=== PATIENT | male | born 1980 | race Caucasian/White ===

== ENCOUNTER 2017-08-02 16:10 | Emergency (ER) | payer SELFPAY ==
[~2017-08-02] VITALS: Ht 175.3 cm; Wt 104.5 kg
[~2017-08-02 16:10] MED LIST: Z.0.NO CURRENT MEDS
[2017-08-02 16:14] VITALS: BP 159/94; PULSE 109; RESP 16; TEMP 98.1; O2SAT 98
--- NOTE | 2017-08-02 17:34 | RADRPT ---
EXAM DATE/TIME: 08/02/2017 17:03 [facility] COMPARISON: No previous studies available for comparison. INDICATIONS : Back pain, no recent injury. RADIATION DOSE: 40.08 CTDIvol (mGy) MEDICAL HISTORY : None SURGICAL HISTORY : None. ENCOUNTER: Initial ACUITY: 1 day PAIN SCALE: 10/10 LOCATION: [facility] TECHNIQUE: Volumetric scanning of the lumbar spine was performed. Multiplanar reconstructions in the sagittal, coronal and oblique axial planes were performed. Using automated exposure control and adjustment of the mA and/or kV according to patient size, radiation dose was kept as low as reasonably achievable t o obtain optimal diagnostic quality images. DICOM format image data is available electronically for review and comparison. FINDINGS: VERTEBRAE: Normal vertebral body height. ALIGNMENT: No evidence of subluxation. T12-L1: The thecal sac has a normal diameter. No evidence of disc bulge or protrusion. The neural foramina are patent bilaterally. L1-L2: The thecal sac has a normal diameter. No evidence of disc bulge or protrusion. The neural foramina are patent bilaterally. L2-L3: The thecal sac has a normal diameter. No evidence of disc bulge or protrusion. The neural foramina are patent bilaterally. L3-L4: The thecal sac has a normal diameter. No evidence of disc bulge or protrusion. The neural foramina are patent bilaterally. L4-L5: Mild disc bulging without significant spinal stenosis. Mild degenerative changes are present facets. L5-S1: Central disc protrusion impinging the intrathecal space. Neural foramina are adequate. CONCLUSION: Moderate central disc protrusion L5-S1. Andre Norman MD FACR on August 02, 2017 at 17:31 Board Certified Radiologist. This report was verified electronically.
[2017-08-02] MEDS ORDERED: ORPHENADRINE INJ 60 MG/2 ML AMP IM ONE (17:45)
[2017-08-02] MEDS ORDERED: KETOROLAC TROMETHAMINE 60 MG/2 ML (IM) VIAL IM ONE (17:45)
[2017-08-02] MEDS ORDERED: PRED10PA2 PO (18:19)
[2017-08-02] MEDS ORDERED: CYCL10TA PO (18:19)
[2017-08-02] MEDS ORDERED: NAPR500T2 PO (18:19)
[2017-08-02] MEDS ORDERED: GABA300C5 PO (18:19)
--- NOTE | 2017-08-02 18:21 | PD ---
HPI . Back pain Chief Complaint: Musculoskeletal Complaint Time Seen by Provider: 16:33 Travel History International Travel<30 days: No Contact w/Intl Traveler<30days: No Traveled to known affect area: No History of Present Illness HPI 37-year-old male patient presents emergency department for evaluation of back pain since last Monday. Patient clearly in distress and uncomfortable, unable to move freely secondary to the pain. Patient states the pain is so severe it is in impeding his ability to maintain a normal life. Patient states the pain radiates down both of his legs. Patient denies any fevers, chills or malaise. Patient denies any incontinence of urine or stool. Patient denies any IV drug use. Patient states that the pain started when he was lifting an object from the ground on Monday. Patient has history of back pain in the past but states it is never been this severe. PFSH Past Medical History Asthma: Yes High Cholesterol: Yes Hypertension: Yes (NO MEDS) Kidney Stones: Yes Immunizations Current: Yes Migraines: Yes (?? FROM SLIP DISC IN BACK) Social History Alcohol Use: Yes (OCC) Tobacco Use: Yes (2PPD) Allergies-Medications (Allergen,Severity, Reaction): Coded Allergies: No Known Allergies (Verified Allergy, Mild, 08/02/17) Reported Meds & Prescriptions Reported Meds & Active Scripts Active Flexeril (Cyclobenzaprine HCl) 10 Mg Tab 10 Mg PO TID Naproxen 500 Mg Tab 500 Mg PO BID 10 Days Gabapentin 300 Mg Cap 300 Mg PO TID Prednisone (48) 10 mg tab Dose Pack (Prednisone) 10 Mg Dspk 10 Mg PO DIRECTED Review of Systems Except as stated in HPI: all other systems reviewed are Neg Physical Exam Narrative GENERAL: Well-nourished, well-developed 37-year-old male patient that appears anxious and painful. Unable to move freely secondary to the pain. SKIN: Focused skin assessment warm/dry. HEAD: Normocephalic. Atraumatic. EYES: No scleral icterus. No injection or drainage. NECK: Supple, trachea midline. No JVD or lymphadenopathy. CARDIOVASCULAR: Regular rate and rhythm without murmurs, gallops, or rubs. RESPIRATORY: Breath sounds equal bilaterally. No accessory muscle use. GASTROINTESTINAL: Abdomen soft, non-tender, nondistended. MUSCULOSKELETAL: No obvious deformity, cyanosis, or edema. BACK: Midline tenderness to the lumbosacral region causing pain that radiates down bilateral lower extremities. No CVA tenderness. Data Data Last Documented VS Vital Signs Date Time Temp Pulse Resp B/P (MAP) Pulse Ox O2 Delivery O2 Flow Rate FiO2 08/02/17 16:14 98.1 109 16 159/94 (115) [address] Lumb Spine W/O Contrast (08/02/17 16:53) Ketorolac Inj (Toradol Inj) (08/02/17 17:45) Orphenadrine Inj (Norflex Inj) (08/02/17 17:45) [facility] Medical Decision Making Medical Screen Exam Complete: Yes Emergency Medical Condition: Yes Interpretation(s) Afebrile Differential Diagnosis Differential diagnoses include but not limited to back sprain, muscular strain, herniated disc, lumbar sacral injury, cauda equina syndrome Narrative Course 37-year-old male patient presents emergency department for evaluation of back pain that started last Monday when he was lifting an object off the ground. Patient states the pain has been constant. Patient denies any fever, chills, malaise. Patient denies any incontinence of urine or stool. Patient denies any IV drug use. Due to the patient's physical presentation and clinical appearance and extreme midline tenderness of the lumbar sacral aspect of the spine causing radiculopathy pain a CT of the lumbar spine was ordered. The CT shows moderate central disc protrusion of L5-S1. Upon these results a rectal exam was performed to check rectal tone. Patient has normal rectal tone. Findings were discussed with my attending, Dr. Meyer and due to the patient's lack of cauda equina syndrome and times the patient will be discharged home. Patient was discharged home with prescription for prednisone, Flexeril, gabapentin and naproxen and instructions to follow with Dr. Lowe the neurosurgeon or return to the emergency Department with any worsening or progressive symptoms. Last Impressions Lumbar Spine CT 08/02/17 1653 Signed Impressions: Service Date/Time: Monday, August 02, 2017 17:03 - CONCLUSION: Moderate central disc protrusion L5-S1. Andre Norman MD FACR Diagnosis Primary Impression: Lumbar pain with radiation down both legs Referrals: Yaron Lowe MD Primary Care Physician Patient Instructions: General Instructions, Sciatica (ED) Additional Instructions: Please return to emergency department if your symptoms return or worsen. Look for any progressive symptoms such as incontinence of urine or stool, numbness on inner thigh or groin, fever or chills. Return to the emergency department immediately. Follow-up with Dr. Lowe, the neurosurgeon. Follow up with your primary care provider. Take medications as prescribed. Med/Other Pt SpecificInfo: Prescription(s) given Scripts Cyclobenzaprine (Flexeril) 10 Mg Tab 10 MG PO TID for Muscle Spasm, #30 TAB 0 Refills Prov: Jessie Baumann 08/02/17 Naproxen (Naproxen) 500 Mg Tab 500 MG PO BID for 10 Days, #20 TAB 0 Refills Prov: Jessie Baumann 08/02/17 Gabapentin (Gabapentin) 300 Mg Cap 300 MG PO TID, #30 CAP 0 Refills Prov: Jessie Baumann 08/02/17 Prednisone (48) 10 mg tab Dose Pack (Prednisone (48) 10 mg tab Dose Pack) 10 Mg Dspk 10 MG PO DIRECTED for Inflammation, #1 DSPK 0 Refills Prov: Jessie Baumann 08/02/17 Disposition: 01 DISCHARGE HOME Condition: Stable Jessie Baumann Aug 02, 2017 18:21
== END 2017-08-02 18:35 | disposition home or self-care (01) ==
LOC: PHEFT 16:10
DX: M54.41 Lumbago with sciatica, right side (principal); M54.42 Lumbago with sciatica, left side; F17.200 Nicotine dependence, unspecified, uncomplicated
CPT/HCPCS: 72131; 96372; 99284; J1885; J2360

== ENCOUNTER 2018-01-04 17:15 | Inpatient (IN) | payer SELFPAY ==
[~2018-01-04] VITALS: Ht 177.8 cm; Wt 112.6 kg
[~2018-01-04 17:15] MED LIST changes: +CYCL10TA PO; +GABA300C5 PO; +NAPR500T2 PO; +PRED10PA2 PO; -Z.0.NO CURRENT MEDS
[2018-01-04] MEDS ORDERED: IOHEXOL 350 MG/ML 10 ML VIAL (for RAD DIAG) IVCONTRAST ONE (17:16)
[2018-01-04 17:42] VITALS: BP 164/69; PULSE 115; RESP 20; TEMP 99.1; O2SAT 96
[2018-01-04] MEDS ORDERED: SODIUM CHLORIDE 0.9% FLUSH 10 ML FLUSH IVF PRN (18:15)
[2018-01-04] MEDS ORDERED: MORPHINE SULFATE 8 MG/ML INJ IV PUSH ONE ×2 (18:15→20:15)
[2018-01-04] MEDS ORDERED: ONDANSETRON HCL 4 MG/2 ML VIAL IV PUSH ONE (18:15)
[2018-01-04] MEDS ORDERED: KETOROLAC TROMETHAMINE 30 MG/ML (IVP) VIAL IV PUSH ONE (18:15)
[2018-01-04 19:10] VITALS: BP 176/92; PULSE 95; RESP 18; O2SAT 100
[2018-01-04 19:38] LABS: AUTOMATED NEUTROPHIL # 17.3 TH/MM3 (1.8-7.7); BASOPHIL # 0.1 TH/MM3 (0-0.2); BASOPHIL % 0.4 % (0.0-2.0); EOSINOPHIL % 0.1 % (0.0-4.0); HEMATOCRIT 43.9 % (39.0-51.0); HEMOGLOBIN 15.2 GM/DL (13.0-17.0); LYMPHOCYTE # 2.2 TH/MM3 (1.0-4.8); MEAN CELL VOLUME 90.4 FL (80.0-100.0); MEAN CORPUSCULAR HEMOGLOBIN 31.4 PG (27.0-34.0); MEAN CORPUSCULAR HGB CONC 34.7 % (32.0-36.0); MEAN PLATELET VOLUME 7.1 FL (7.0-11.0); MONO % 8.8 % (0.0-8.0); MONOCYTE # 1.9 TH/MM3 (0-0.9); NEUT % 80.7 % (16.0-70.0); PLATELET COUNT 320 TH/MM3 (150-450); RED BLOOD COUNT 4.85 MIL/MM3 (4.50-5.90); RED CELL DISTRIBUTION WIDTH 13.5 % (11.6-17.2); WHITE BLOOD COUNT 21.4 TH/MM3 (4.0-11.0)
--- NOTE | 2018-01-04 19:55 | PD ---
HPI Chief Complaint: Complaint Time Seen by Provider: 18:04 Travel History International Travel<30 days: No Contact w/Intl Traveler<30days: No Traveled to known affect area: No History of Present Illness HPI 27-year-old male complains of testicular pain for about 30 hours. Pain has been gradual before then however became severe suddenly at 2 PM yesterday. He describes left testicle feels firm. There is constant severe pain. It radiates to the left lower quadrant. Pain made work more difficult. No dysuria or discharge. No fever or vomiting. No similar prior events. No trauma. PFSH Past Medical History Asthma: Yes High Cholesterol: Yes Diminished Hearing: No Hypertension: Yes Kidney Stones: Yes Neurologic: Yes (slipped discs) Immunizations Current: Yes Migraines: Yes (FROM SLIP DISC IN BACK) Tetanus Vaccination: Unknown Influenza Vaccination: No Social History Alcohol Use: Yes (OCC) Tobacco Use: Yes (2PPD) Substance Use: No Allergies-Medications (Allergen,Severity, Reaction): Coded Allergies: No Known Allergies (Verified Allergy, Mild, 08/02/17) Reported Meds & Prescriptions Reported Meds & Active Scripts Active Flexeril (Cyclobenzaprine HCl) 10 Mg Tab 10 Mg PO TID Naproxen 500 Mg Tab 500 Mg PO BID 10 Days Review of Systems Except as stated in HPI: all other systems reviewed are Neg General / Constitutional: No: Fever Eyes: No: Drainage Cardiovascular: No: Chest Pain or Discomfort Physical Exam Narrative GENERAL: 27 yo M, WNWD, mild distress 2/2 pain : No discharge at meatus. No lesion about glans. L testicle is firm with normal lie. Minimal swelling with induration and tenderness. R testicle is normal. Vital Signs Date Time Temp Pulse Resp B/P (MAP) Pulse Ox O2 Delivery O2 Flow Rate FiO2 01/04/18 17:46 99.9 85 14 126/63 (84) 99 SKIN: Warm and dry. HEAD: Atraumatic. Normocephalic. EYES: Pupils equal and round. No scleral icterus. No injection or drainage. ENT: No nasal bleeding or discharge. Mucous membranes pink and moist. NECK: Trachea midline. No JVD. CARDIOVASCULAR: Regular rate and rhythm. RESPIRATORY: No accessory muscle use. Clear to auscultation. Breath sounds equal bilaterally. GASTROINTESTINAL: Soft. No tenderness. MUSCULOSKELETAL: Extremities without clubbing, cyanosis, or edema. No obvious deformities. NEUROLOGICAL: Awake and alert. No obvious cranial nerve deficits. Motor grossly within normal limits. Five out of 5 muscle strength in the arms and legs. Normal speech. PSYCHIATRIC: Appropriate mood and affect; insight and judgment normal. Data Data Last Documented VS Vital Signs Date Time Temp Pulse Resp B/P (MAP) Pulse Ox O2 Delivery O2 Flow Rate FiO2 01/04/18 20:20 85 18 153/76 (101) 96 Room Air 01/04/18 17:42 99.1 Orders Orders Basic Metabolic Panel (Bmp) (01/04/18 18:09) Complete Blood Count With Diff (01/04/18 18:09) Ua Includes Microscopic (01/04/18 18:09) Us Testicles W Doppler (01/04/18 18:09) Iv Access Insert/Monitor (01/04/18 18:09) Sodium Chloride 0.9% Flush (Ns Flush) (01/04/18 18:15) Ketorolac Inj (Toradol Inj) (01/04/18 18:15) Morphine Inj (Morphine Inj) (01/04/18 18:15) Ondansetron Inj (Zofran Inj) (01/04/18 18:15) Ct Abd/Pel W Iv Contrast(Rout) (01/04/18 20:11) Piperacil-Tazo 4.5 Gm Premix (Zosyn 4.5 (01/04/18 20:15) Morphine Inj (Morphine Inj) (01/04/18 20:15) Sodium Chlor 0.9% 1000 Ml Inj (Ns 1000 M (01/04/18 20:15) Iohexol 350 Inj (Omnipaque 350 Inj) (01/04/18 17:16) Admit Order (Ed Use Only) (01/04/18 ) Vital Signs (Adult) Q4H (01/04/18 21:43) Activity Bed Rest (01/04/18 21:43) Labs Laboratory Tests Test 01/04/18 19:15 White Blood Count 21.4 TH/MM3 Red Blood Count 4.85 MIL/MM3 Hemoglobin 15.2 GM/DL Hematocrit 43.9 % Mean Corpuscular Volume 90.4 FL Mean Corpuscular Hemoglobin 31.4 PG Mean Corpuscular Hemoglobin Concent 34.7 % Red Cell Distribution Width 13.5 % Platelet Count 320 TH/MM3 Mean Platelet Volume 7.1 FL Neutrophils (%) (Auto) 80.7 % Lymphocytes (%) (Auto) 10.0 % Monocytes (%) (Auto) 8.8 % Eosinophils (%) (Auto) 0.1 % Basophils (%) (Auto) 0.4 % Neutrophils # (Auto) 17.3 TH/MM3 Lymphocytes # (Auto) 2.2 TH/MM3 Monocytes # (Auto) 1.9 TH/MM3 Eosinophils # (Auto) 0.0 TH/MM3 Basophils # (Auto) 0.1 TH/MM3 CBC Comment DIFF FINAL Differential Comment Blood Urea Nitrogen 14 MG/DL Creatinine 1.22 MG/DL Random Glucose 104 MG/DL Calcium Level 9.0 MG/DL Sodium Level 136 MEQ/L Potassium Level 3.7 MEQ/L Chloride Level 104 MEQ/L Carbon Dioxide Level 24.4 MEQ/L Anion Gap 8 MEQ/L Estimat Glomerular Filtration Rate 68 ML/MIN MDM Medical Decision Making Medical Screen Exam Complete: Yes Emergency Medical Condition: Yes Medical Record Reviewed: Yes Differential Diagnosis cellulitis, torsion, hydrocele Narrative Course Patient has significant cellulitis about the left groin with edema about the inguinal canal. Pt meets sepsis criteria. IV Zosyn started. d/w Dr Solano CBC & BMP Diagram 01/04/18 19:15 Calcium Level 9.0 Last Impressions Abdomen/Pelvis CT 01/04/182010 Signed Impressions: Service Date/Time: December 20:34 - CONCLUSION: Edematous changes around the left inguinal canal Greg Bardales MD Scrotum Ultrasound 01/04/181808 Signed Impressions: Service Date/Time: December 19:12 - CONCLUSION: Testicles are nonacute in appearance. Microlithiasis noted. Edematous changes in the left inguinal canal. Greg Bardales MD Critical Care Narrative Aggregate critical care time was 35 minutes. Time to perform other separately billable procedures was not included in the critical care time. My time did not include minutes spent treating any other patients simultaneously or on activities that did not directly contribute to the patient's treatment. The services I provided to this patient were to treat and/or prevent clinically significant deterioration that could result in: Septic shock I provided critical care services requiring my management, as noted below: Chart data review, documentation time, medication orders and management, vital sign assessments/reviewing monitor data, ordering and reviewing lab tests, ordering and interpreting/reviewing x-rays and diagnostic studies, care of the patient and discussion of the patient with the admitting physicians. Diagnosis Primary Impression: Sepsis Qualified Codes: A41.9 - Sepsis, unspecified organism Additional Impressions: Cellulitis of scrotum Cellulitis of groin, left Admitting Information Admitting Physician Requests: Admit Jose Alejandro Hansen MD Jan 04, 2018 19:55
--- NOTE | 2018-01-04 20:05 | RADRPT ---
EXAM DATE/TIME: 01/04/2018 19:12 [facility] COMPARISON: No previous studies available for comparison. INDICATIONS : Left testicular pain and swelling. MEDICAL HISTORY : Hypertension. Hypercholesterolemia. Asthma. SURGICAL HISTORY : Orthopedic surgery - wrist. ENCOUNTER: Initial ACUITY: 2 days PAIN SCORE: 8/10 LOCATION: Bilateral testicles. MEASUREMENTS: RIGHT TESTICLE: 4.9 x 3.1 x 2.5cm LEFT TESTICLE: 5.3 x 3.3 x 2.3cm FINDINGS: The testicles are intact with normal color flow. No evidence of testicular mass. Bilateral microlithi asis. There is edematous tissue in the left inguinal canal which is nonspecific but may reflect hematoma or cellulitis. CONCLUSION: Testicles are nonacute in appearance. Microlithiasis noted. Edematous changes in the left inguinal canal. Greg Bardales MD on January 04, 2018 at 20:01 Board Certified Radiologist. This report was verified electronically.
[2018-01-04 20:13] LABS: BICARBONATE 24.4 MEQ/L (21.0-32.0); CREATININE 1.22 MG/DL (0.60-1.30)
[2018-01-04] MEDS ORDERED: SODIUM CHLOR 0.9% 1000 ML INJ 1,000 ML IV ONE (20:15)
[2018-01-04] MEDS ORDERED: PIPERACIL-TAZO 4.5 GM PREMIX 100 ML IV ONE (20:15)
[2018-01-04 20:20] VITALS: BP 153/76; PULSE 85; RESP 18; O2SAT 96
--- NOTE | 2018-01-04 21:07 | RADRPT ---
EXAM DATE/TIME: 01/04/2018 20:34 [facility] COMPARISON: US TESTICLE W/DOPPLER, January 04, 2018, 19:12. INDICATIONS : Left lower abdomen pain, testicular pain and swelling. IV CONTRAST: 91 cc Omnipaque 350 (iohexol) IV ORAL CONTRAST: No oral contrast ingested. RADIATION DOSE: 11.02 CTDIvol (mGy) MEDICAL HISTORY : Hypertension. Renal calculi. SURGICAL HISTORY : None. ENCOUNTER: Initial ACUITY: 1 day PAIN SCALE: 7/10 LOCATION: Left lower quadrant abdomen TECHNIQUE: Volumetric scanning of the abdomen and pelvis was performed. Using automated exposure control and ad justment of the mA and/or kV according to patient size, radiation dose was kept as low as reasonably achievable to obtain optimal diagnostic quality images. DICOM format image data is available electro nically for review and comparison. FINDINGS: LOWER LUNGS: The visualized lower lungs are clear. LIVER: Homogeneous density without lesion. There is no dilation of the biliary tree. No calcified gallston es. SPLEEN: Normal size without lesion. PANCREAS: Within normal limits. KIDNEYS: Normal in size and shape. There is no mass, stone or hydronephrosis. ADRENAL GLANDS: Within normal limits. VASCULAR: There is no aortic aneurysm. BOWEL/MESENTERY: The stomach, small bowel, and colon demonstrate no acute abnormality. There is no free intraperitone al air or fluid. ABDOMINAL WALL: Within normal limits. RETROPERITONEUM: There is no lymphadenopathy. BLADDER: No wall thickening or mass. REPRODUCTIVE: Within normal limits. INGUINAL: Edematous changes around the left inguinal canal. No drainable collection. MUSCULOSKELETAL: Within normal limits for patient age. CONCLUSION: Edematous changes around the left inguinal canal Greg Bardales MD on January 04, 2018 at 21:02 Board Certified Radiologist. This report was verified electronically.
[2018-01-04] MEDS ORDERED: ONDANSETRON HCL 4 MG/2 ML VIAL IVP PRN (21:45)
[2018-01-04] MEDS ORDERED: Vancomycin Consult Pharmacy 1 EA OTHER SCH (21:45)
[2018-01-04] MEDS ORDERED: LACTULOSE SYRUP 20 GM/30 ML CUP PO PRN (21:45)
[2018-01-04] MEDS ORDERED: BISACODYL 10 MG SUPP RECTAL PRN (21:45)
[2018-01-04] MEDS ORDERED: ACETAMINOPHEN 325 MG TAB PO PRN (21:45)
[2018-01-04] MEDS ORDERED: ACETAMINOPHEN/HYDROcodone 325 MG/5 MG TAB PO PRN (21:45)
[2018-01-04] MEDS ORDERED: SENNOSIDES 8.6 MG TAB PO PRN (21:45)
[2018-01-04] MEDS ORDERED: MORPHINE SULFATE 2 MG/ML SYRINGE IV PUSH PRN (21:45)
[2018-01-04] MEDS ORDERED: SODIUM CHLORIDE 0.9% FLUSH 10 ML FLUSH IV FLUSH PRN (21:45)
--- NOTE | 2018-01-04 21:47 | HHI.HP ---
[facility] Service [facility] Primary Care Physician No Primary Care Physician Admission Diagnosis Sepsis; Scrotal Cellulitis Diagnoses: (1) Sepsis Diagnosis: Principal (2) Cellulitis of scrotum Diagnosis: Principal (3) HTN (hypertension) Diagnosis: Principal (4) Tobacco abuse Diagnosis: Principal Travel History International Travel<30 Days: No Contact w/Intl Traveler <30 Da: No Traveled to Known Affected Are: No History of Present Illness This is a 37-year-old male with a PMH of HTN, Migraine and Renal Stones who presented to the ER with complaints of testicular pain x1 day. Denies recent trauma or injury. No penile discharge, no dysuria. No h/o similar symptoms in the past. Pain is constant, severe, 10/10, radiates to left groin, worse w/ movement. On arrival, BP 164/69, HR 115, O2 sat 96% on RA, Temp 99.1. WBC 21.4. Chemistry unremarkable. Scrotum US testicles nonacute in appearance, microlithiasis noted, edematous changes left inguinal canal. CT Abdomen/Pelvis edematous changes around left inguinal canal. S/p Zosyn in ER. Review of Systems Except as stated in HPI: all other systems reviewed are Neg ROS: 14 point review of systems otherwise negative. Past Family Social History Past Medical History PMH HTN, Migraine and Renal Stones Past Surgical History PAST SURGICAL HISTORY: Wrist Surgery Allergies: Coded Allergies: No Known Allergies (Verified Allergy, Mild, 08/02/17) Family History PAST FAMILY HISTORY: Reviewed. No h/o DM or CAD Social History PAST SOCIAL HISTORY: Occasional alcohol. Smokes 2ppd. Negative for drugs Physical Exam Vital Signs Vital Signs Date Time Temp Pulse Resp B/P (MAP) Pulse Ox O2 Delivery O2 Flow Rate FiO2 01/04/18 20:20 85 18 153/76 (101) 96 Room Air 01/04/18 20:19 18 01/04/18 19:20 18 01/04/18 19:10 95 18 176/92 (120) 100 Room Air 01/04/18 17:42 99.1 115 20 164/69 (100) 96 Physical Exam PE: GENERAL: Very pleasant young male in no acute distress. Family at bedside. HEENT: PERRLA, EOMI. No scleral icterus or conjunctival pallor. No lid lag or facial droop. CARDIOVASCULAR: Regular rate and rhythm. No obvious murmurs to auscultation. No chest tenderness to palpation. RESPIRATORY: No obvious rhonchi or wheezing. Clear to auscultation. Breath sounds equal bilaterally. GASTROINTESTINAL: Abdomen soft, non-tender, nondistended. BS normal. MUSCULOSKELETAL: Extremities without clubbing, cyanosis, or edema. No obvious deformities. NEUROLOGICAL: Awake, alert and oriented x4. No focal neurologic deficits. Moving both upper and lower extremities spontaneously. Laboratory Laboratory Tests Test 01/04/18 19:15 White Blood Count 21.4 Red Blood Count 4.85 Hemoglobin 15.2 Hematocrit 43.9 Mean Corpuscular Volume 90.4 Mean Corpuscular Hemoglobin 31.4 Mean Corpuscular Hemoglobin Concent 34.7 Red Cell Distribution Width 13.5 Platelet Count 320 Mean Platelet Volume 7.1 Neutrophils (%) (Auto) 80.7 Lymphocytes (%) (Auto) 10.0 Monocytes (%) (Auto) 8.8 Eosinophils (%) (Auto) 0.1 Basophils (%) (Auto) 0.4 Neutrophils # (Auto) 17.3 Lymphocytes # (Auto) 2.2 Monocytes # (Auto) 1.9 Eosinophils # (Auto) 0.0 Basophils # (Auto) 0.1 CBC Comment DIFF FINAL Differential Comment Blood Urea Nitrogen 14 Creatinine 1.22 Random Glucose 104 Calcium Level 9.0 Sodium Level 136 Potassium Level 3.7 Chloride Level 104 Carbon Dioxide Level 24.4 Anion Gap 8 Estimat Glomerular Filtration Rate 68 Result Diagram: 01/04/18191401/04/181914 Caprini VTE Risk Assessment Caprini VTE Risk Assessment: No/Low Risk (score <= 1) Caprini Risk Assessment Model Point Value = 1 Point Value = 2 Point Value = 3 Point Value = 5 Age 41-60 Minor surgery BMI > 25 kg/m2 Swollen legs Varicose veins or History of unexplained or recurrent spontaneous Oral contraceptives or hormone replacement Sepsis (< 1 month) Serious lung disease, including pneumonia (< 1 month) Abnormal pulmonary function Acute myocardial infarction Congestive heart failure (< 1 month) History of inflammatory bowel disease Medical patient at bed rest Age 61-74 Arthroscopic surgery Major open surgery (> 45 min) Laparoscopic surgery (> 45 min) Malignancy Confined to bed (> 72 hours) Immobilizing plaster cast Central venous access Age >= 75 History of VTE Family history of VTE Factor V Leiden Prothrombin [id number] Lupus anticoagulant Anticardiolipin antibodies Elevated serum homocysteine Heparin-induced thrombocytopenia Other congenital or acquired thrombophilia Stroke (< 1 month) Elective arthroplasty Hip, pelvis, or leg fracture Acute spinal cord injury (< 1 month) Prophylaxis Regimen Total Risk Factor Score Risk Level Prophylaxis Regimen 0-1 Low Early ambulation 2 Moderate Order ONE of the following: *Sequential Compression Device (SCD) *Heparin 5000 units SQ BID 3-4 Higher Order ONE of the following medications: *Heparin 5000 units SQ TID *Enoxaparin/Lovenox 40 mg SQ daily (WT < 150 kg, CrCl > 30 mL/min) *Enoxaparin/Lovenox 30 mg SQ daily (WT < 150 kg, CrCl > 10-29 mL/min) *Enoxaparin/Lovenox 30 mg SQ BID (WT < 150 kg, CrCl > 30 mL/min) AND/OR *Sequential Compression Device (SCD) 5 or more Highest Order ONE of the following medications: *Heparin 5000 units SQ TID (Preferred with Epidurals) *Enoxaparin/Lovenox 40 mg SQ daily (WT < 150 kg, CrCl > 30 mL/min) *Enoxaparin/Lovenox 30 mg SQ daily (WT < 150 kg, CrCl > 10-29 mL/min) *Enoxaparin/Lovenox 30 mg SQ BID (WT < 150 kg, CrCl > 30 mL/min) AND *Sequential Compression Device (SCD) Assessment and Plan Problem List: (1) Sepsis ICD Code: A41.9 - Sepsis, unspecified organism Status: Acute (2) Cellulitis of groin, left ICD Code: L03.314 - Cellulitis of groin Status: Acute (3) Tobacco abuse ICD Code: Z72.0 - Tobacco use (4) HTN (hypertension) ICD Code: I10 - Essential (primary) hypertension Assessment and Plan A/P: 1. Sepsis: Temp 99.1, HR 115, WBC 21, Source-Scrotal Cellulitis, s/p Zosyn in ER, Blood Cultures done, will follow up. Continue w/ IV Vanc/Zosyn 2. Scrotal Cellulitis: Left. No acute trauma/injury. CT Abd/Pelvis w/ left inguinal edema, Scrotal US w/ nonacute testicles, microlithiasis noted, edematous changes left inguinal canal, images reviewed by me. Continue IV Abx as above, monitor for progression, Consult Urology as needed if no improvement. 3. HTN: Uncontrolled, likely compounded by acute pain, monitor BP, antihypertensives as needed to keep BP <180 4. Tobacco Abuse: NicoDerm prn if needed. 5. DVT Prophylaxis: SCD/Teds 6. Social work for d/c planning as needed. 7. Case discussed w/ ER physician at length, labs/records/imaging reviewed by me Physician Certification 2 Midnight Certification Type: Admission for Inpatient Services Order for Inpatient Services The services are ordered in accordance with Medicare regulations or non- Medicare payer requirements, as applicable. In the case of services not specified as inpatient-only, they are appropriately provided as inpatient services in accordance with the 2-midnight benchmark. Estimated LOS (days): 2 days is the estimated time the patient will need to remain in the hospital, assuming treatment plan goals are met and no additional complications. Post-Hospital Plan: Not yet determined Problem Qualifiers (1) Sepsis: Qualified Codes: A41.9 - Sepsis, unspecified organism Jackie Solano MD Jan 04, 2018 21:46
[2018-01-04] MEDS: SODIUM CHLOR 0.9% 1000 ML INJ 1,000 ML IV SCH (22:28)
[2018-01-04] MEDS ORDERED: VANCOMYCIN INJ 2,000 MG in SODIUM CHLORID 0.9% 500 ML INJ 500 ML IV ONE (23:00)
[2018-01-04 23:12] VITALS: BP 134/70; PULSE 86; RESP 18; O2SAT 96
[2018-01-05] VITALS (8 sets, daily range): BP systolic 125–154; BP diastolic 60–81; PULSE 78–99; RESP 17–19; TEMP 98–98.6; O2SAT 95–99
[2018-01-05] MEDS: HYDROmorphone HCL PF 2 MG/ML VIAL IV PUSH PRN ×2 (00:19→08:33)
[2018-01-05 01:00] LABS: BACTERIA, URINE RARE /hpf; BILIRUBIN, URINE NEG (NEG); BLOOD, URINE NEG (NEG); GLUCOSE,URINE NEG (NEG); KETONE, URINE NEG (NEG); MUCUS URINE FEW /lpf (OCC); NITRITE,URINE NEG (NEG); URINE COLOR YELLOW (YELLW/STRAW); URINE LEUKOCYTE ESTERASE NEG (NEG)
[2018-01-05 05:04] LABS: AUTOMATED NEUTROPHIL # 10.3 TH/MM3 (1.8-7.7); BASOPHIL # 0.1 TH/MM3 (0-0.2); BASOPHIL % 0.4 % (0.0-2.0); EOSINOPHIL # 0.2 TH/MM3 (0-0.4); EOSINOPHIL % 1.2 % (0.0-4.0); HEMATOCRIT 39.5 % (39.0-51.0); HEMOGLOBIN 14.1 GM/DL (13.0-17.0); LYMPH % 17.2 % (9.0-44.0); LYMPHOCYTE # 2.4 TH/MM3 (1.0-4.8); MEAN CELL VOLUME 90.3 FL (80.0-100.0); MEAN CORPUSCULAR HEMOGLOBIN 32.2 PG (27.0-34.0); MEAN CORPUSCULAR HGB CONC 35.6 % (32.0-36.0); MEAN PLATELET VOLUME 6.9 FL (7.0-11.0); MONO % 7.6 % (0.0-8.0); MONOCYTE # 1.1 TH/MM3 (0-0.9); NEUT % 73.6 % (16.0-70.0); PLATELET COUNT 272 TH/MM3 (150-450); RED BLOOD COUNT 4.37 MIL/MM3 (4.50-5.90); RED CELL DISTRIBUTION WIDTH 13.7 % (11.6-17.2)
[2018-01-05 05:26] LABS: ALBUMIN 3.3 GM/DL (3.4-5.0); ALT (GPT) 38 U/L (12-78); AST (GOT) 12 U/L (15-37); BICARBONATE 26.9 MEQ/L (21.0-32.0); BLOOD UREA NITROGEN 18 MG/DL (7-18); CALCIUM 8.3 MG/DL (8.5-10.1); CHLORIDE 105 MEQ/L (98-107); CREATININE 1.08 MG/DL (0.60-1.30); GLOMERULAR FILTRATION RATE 78 ML/MIN (>89); GLUCOSE,RANDOM 109 MG/DL (74-106); SODIUM (NA) 138 MEQ/L (136-145)
[2018-01-05 05:29] LABS: ALKALINE PHOSPHATASE 81 U/L (45-117); TOTAL BILIRUBIN ADULT 1.2 MG/DL (0.2-1.0); TOTAL PROTEIN 7.1 GM/DL (6.4-8.2)
[2018-01-05] MEDS: SODIUM CHLOR 0.9% 1000 ML INJ 1,000 ML IV SCH ×2 (07:44→17:44)
[2018-01-05] MEDS ORDERED: oxyCODONE/ACETAMINOPHEN 5 MG/325 MG TAB PO PRN (10:15)
--- NOTE | 2018-01-05 10:24 | HHI.PR ---
Subjective Remarks Patient reports subjective worsening of swelling overnight. Labs show improvement in WBCs. Imaging shows no testicular involvement, but edema extends into the left inguinal canal. Objective Vital Signs Date Time Temp Pulse Resp B/P (MAP) Pulse Ox O2 Delivery O2 Flow Rate FiO2 01/05/18 07:46 98.3 83 18 139/69 (92) 96 01/05/18 03:59 98.6 89 18 125/67 (86) 99 01/05/18 00:44 81 01/05/18 00:35 98.6 94 18 130/70 (90) 96 01/05/18 00:17 78 18 129/60 (83) 97 Room Air 01/04/18 23:12 86 18 134/70 (91) 96 Room Air 01/04/18 20:20 85 18 153/76 (101) 96 Room Air 01/04/18 20:19 18 01/04/18 19:20 18 01/04/18 19:10 95 18 176/92 (120) 100 Room Air 01/04/18 17:42 99.1 115 20 164/69 (100) 96 I/O 01/04/18 01/04/18 01/04/18 01/05/18 01/05/18 01/05/18 07:00 15:00 23:00 07:00 15:00 23:00 Intake Total 1100 ml 1274 ml Output Total 317 ml Balance 1100 ml 1274 ml -317 ml Intake Oral 240 ml IV Total 1100 ml 1034 ml Output Urine Total 317 ml # Voids 0 # Bowel Movements 0 Result Diagram: 01/05/18 0443 01/05/18 0443 Objective Remarks GENERAL: NAD, A&Ox3 HEAD: Normocephalic. NECK: Supple, trachea midline. No lymphadenopathy. EYES: No scleral icterus. No injection or drainage. CARDIOVASCULAR: Regular rate and rhythm without murmurs, gallops, or rubs. RESPIRATORY: Breath sounds equal bilaterally. No accessory muscle use. GASTROINTESTINAL: Abdomen soft, non-tender, nondistended. MUSCULOSKELETAL: No cyanosis, or edema. SKIN: Warm and dry. NEURO: No focal neurological deficitis. GENITAL/URINARY: left sided induration and erythema of scrotum with tenderness. Palpable induration at left inguinal canal. Small nodular focus at perineal/ scrotal margin. No visible evidence of necrosis. A/P Problem List: (1) HTN (hypertension) ICD Code: I10 - Essential (primary) hypertension (2) Tobacco abuse ICD Code: Z72.0 - Tobacco use (3) Cellulitis of groin, left ICD Code: L03.314 - Cellulitis of groin Status: Acute (4) Sepsis ICD Code: A41.9 - Sepsis, unspecified organism Status: Acute (5) Cellulitis of scrotum ICD Code: N49.2 - Inflammatory disorders of scrotum Status: Acute Assessment and Plan 37 year old male, admitted with scrotal cellulitis Sepsis Resolved Scrotal Cellulitis Pt reports worsening in last 24 hours Left Inguinal Canal Edema Continue Vancomycin Continue Zosyn Urology consulted Hypertension Continue baseline treatment Follow blood pressures Adjust treatments as needed Tobacco abuse NicoDerm DVT prophylaxis SCDs Problem Qualifiers (1) Sepsis: Qualified Codes: A41.9 - Sepsis, unspecified organism Jose Alejandro Marie MD Jan 05, 2018 10:24
[2018-01-05] MEDS: DOCUSATE SODIUM 50 MG/SENNA 8.6 MG TAB PO SCH ×2 (10:34→21:00)
[2018-01-05] MEDS: CEFEPIME INJ 1,000 MG in SODIUM CHLORIDE 0.9% INJ 100 ML IV SCH ×2 (10:35→21:43)
[2018-01-05] MEDS: SODIUM CHLORIDE 0.9% FLUSH 10 ML FLUSH IV FLUSH SCH ×2 (10:36→21:49)
[2018-01-05] MEDS ORDERED: VANCOMYCIN INJ 1,500 MG in SODIUM CHLORID 0.9% 500 ML INJ 500 ML IV SCH (13:00)
--- NOTE | 2018-01-05 14:23 | PD.CONS ---
HPI Service Urology Consult Requested By Dr Solano Reason for Consult Scrotal cellulitis Infected cyst Primary Care Physician No Primary Care Physician Diagnosis: (1) Sepsis ICD Code: A41.9 - Sepsis, unspecified organism (2) Cellulitis of groin, left ICD Code: L03.314 - Cellulitis of groin (3) Tobacco abuse ICD Code: Z72.0 - Tobacco use (4) HTN (hypertension) ICD Code: I10 - Essential (primary) hypertension History of Present Illness This is a 37-year-old male with a PMH of HTN, Migraine and Renal Stones who presented to the ER with complaints of testicular pain x1 day. Denies recent trauma or injury. No penile discharge, no dysuria. No h/o similar symptoms in the past. Pain is constant, severe, 10/10, radiates to left groin, worse w/ movement. On arrival, BP 164/69, HR 115, O2 sat 96% on RA, Temp 99.1. WBC 21.4. Chemistry unremarkable. Scrotum US testicles nonacute in appearance, microlithiasis noted, edematous changes left inguinal canal. CT Abdomen/Pelvis edematous changes around left inguinal canal. S/p Zosyn in ER. He states that a few days ago noted a small cyst at his left hemiscrotum and in 2 days it bacme much worse, he cannot tell for sure if scratched that area allowing bacteria to enter. no fevere, no voiding c/o. no hematuria. Its a strong pain at the left scrotum on a bottom where cyst is and in the left groin. Antbx are not helping so far. he is tachycardic and BP is on a low side Review of Systems Except as stated in HPI: all other systems reviewed are Neg Past Family Social History Past Medical History HTN, Migraine and Renal Stones Past Surgical History Wrist Surgery Allergies: Coded Allergies: No Known Allergies (Verified Allergy, Mild, 08/02/17) Family History Reviewed. No h/o DM or CAD Social History Occasional alcohol. Smokes 2ppd. Negative for drugs Physical Exam Vital Signs Date Time Temp Pulse Resp B/P (MAP) Pulse Ox O2 Delivery O2 Flow Rate FiO2 01/05/18 12:47 98.0 96 18 144/79 (100) 95 01/05/18 07:46 98.3 83 18 139/69 (92) 96 01/05/18 03:59 98.6 89 18 125/67 (86) 99 01/05/18 00:44 81 01/05/18 00:35 98.6 94 18 130/70 (90) 96 01/05/18 00:17 78 18 129/60 (83) 97 Room Air 01/04/18 23:12 86 18 134/70 (91) 96 Room Air 01/04/18 20:20 85 18 153/76 (101) 96 Room Air 01/04/18 20:19 18 01/04/18 19:20 18 01/04/18 19:10 95 18 176/92 (120) 100 Room Air 01/04/18 17:42 99.1 115 20 164/69 (100) 96 Physical Exam GENERAL: This is a well-nourished, well-developed patient, in no apparent distress. NECK: Trachea midline. No JVD or lymphadenopathy. Supple, nontender, no meningeal signs. CARDIOVASCULAR: Tachycardic, no murmurs, gallops, or rubs. RESPIRATORY: Clear to auscultation. Breath sounds equal bilaterally. No wheezes , rales, or rhonchi. GASTROINTESTINAL: Abdomen soft, non-tender, nondistended. GENITOURINARY: mild scrotal erythema. left perineal/hemiscrotal infected sebaceous cyst tender and firm, Tenderness and firmness extends to left groin. Otherwise normal exam MUSCULOSKELETAL: Extremities without clubbing, cyanosis, or edema. NEUROLOGICAL: Awake and alert. Lab results reviewed: Yes Laboratory Tests Test 01/04/18 19:15 01/05/18 00:15 01/05/18 04:43 White Blood Count 21.4 14.0 Red Blood Count 4.85 4.37 Hemoglobin 15.2 14.1 Hematocrit 43.9 39.5 Mean Corpuscular Volume 90.4 90.3 Mean Corpuscular Hemoglobin 31.4 32.2 Mean Corpuscular Hemoglobin Concent 34.7 35.6 Red Cell Distribution Width 13.5 13.7 Platelet Count 320 272 Mean Platelet Volume 7.1 6.9 Neutrophils (%) (Auto) 80.7 73.6 Lymphocytes (%) (Auto) 10.0 17.2 Monocytes (%) (Auto) 8.8 7.6 Eosinophils (%) (Auto) 0.1 1.2 Basophils (%) (Auto) 0.4 0.4 Neutrophils # (Auto) 17.3 10.3 Lymphocytes # (Auto) 2.2 2.4 Monocytes # (Auto) 1.9 1.1 Eosinophils # (Auto) 0.0 0.2 Basophils # (Auto) 0.1 0.1 CBC Comment DIFF FINAL DIFF FINAL Differential Comment Blood Urea Nitrogen 14 18 Creatinine 1.22 1.08 Random Glucose 104 109 Calcium Level 9.0 8.3 Sodium Level 136 138 Potassium Level 3.7 3.8 Chloride Level 104 105 Carbon Dioxide Level 24.4 26.9 Anion Gap 8 6 Estimat Glomerular Filtration Rate 68 78 Urine Color YELLOW Urine Turbidity CLEAR Urine pH 6.0 Urine Specific [place] GREATER THAN 1.050 Urine Protein 30 Urine Glucose (UA) NEG Urine Ketones NEG Urine Occult Blood NEG Urine Nitrite NEG Urine Bilirubin NEG Urine Urobilinogen 2.0 Urine Leukocyte Esterase NEG Urine RBC 4 Urine WBC 3 Urine Bacteria RARE Urine Mucus FEW Microscopic Urinalysis Comment CULT NOT INDICATED Total Protein 7.1 Albumin 3.3 Alkaline Phosphatase 81 Aspartate Amino Transf (AST/SGOT) 12 Alanine Aminotransferase (ALT/SGPT) 38 Total Bilirubin 1.2 Result Diagram: 01/05/1844201/05/18442 Personally reviewed images: Yes Imaging Last Impressions Abdomen/Pelvis CT 01/04/182010 Signed Impressions: Service Date/Time: December 20:34 - CONCLUSION: Edematous changes around the left inguinal canal Greg Bardales MD Scrotum Ultrasound 01/04/181808 Signed Impressions: Service Date/Time: December 19:12 - CONCLUSION: Testicles are nonacute in appearance. Microlithiasis noted. Edematous changes in the left inguinal canal. Greg Bardales MD Assessment and Plan Assessment and Plan No acute intervention needed at this time. No significant abnormalities on Scrotal US and CT except inguinal inflammation Continue care as per primary team IV fluids and IV antibiotics. NSAIDs for pain and inflammation. pain control Scrotal elevation/support Consult ID for antbx management Urology will follow and reevaluate tomorrow for necessity of doing I&D Discussed Condition With Dr Meagan CAIN attending who agrees with this plan Problem Qualifiers (1) Sepsis: Qualified Codes: A41.9 - Sepsis, unspecified organism Brady Grubbs Jan 05, 2018 14:23
[2018-01-05] MEDS: VANCOMYCIN INJ 1,500 MG in SODIUM CHLORID 0.9% 500 ML INJ 500 ML IV SCH (16:55)
[2018-01-05] MEDS: oxyCODONE/ACETAMINOPHEN 10 MG/325 MG TAB PO PRN ×2 (17:00→21:43)
[2018-01-05] MEDS: MORPHINE SULFATE 2 MG/ML SYRINGE IV PUSH PRN ×2 (18:13→23:02)
[2018-01-06] VITALS (7 sets, daily range): BP systolic 116–156; BP diastolic 58–83; PULSE 84–106; RESP 18–19; TEMP 97.4–100.7; O2SAT 90–95
[2018-01-06] MEDS: SODIUM CHLOR 0.9% 1000 ML INJ 1,000 ML IV SCH ×2 (03:01→13:44)
[2018-01-06] MEDS: oxyCODONE/ACETAMINOPHEN 10 MG/325 MG TAB PO PRN ×4 (03:02→21:03)
[2018-01-06] MEDS: VANCOMYCIN INJ 1,500 MG in SODIUM CHLORID 0.9% 500 ML INJ 500 ML IV SCH ×2 (03:03→16:46)
[2018-01-06] MEDS ORDERED: POVIDONE IODINE 5% (ANTISEPSIS KIT) 4 APPLICATIONS EACH NARE PRN (04:45)
[2018-01-06] MEDS ORDERED: LACTATED RINGER'S 1000 ML IV PRN (04:45)
[2018-01-06] MEDS ORDERED: CHLORHEXIDINE GLUCONATE 2 % 1 PACK (2 CLOTHS) TOPICAL PRN (04:45)
[2018-01-06] MEDS ORDERED: ACETAMINOPHEN 1000 MG/100 ML 100 ML IV ONE (07:37)
[2018-01-06] MEDS ORDERED: FAMOTIDINE 20 MG/2 ML VIAL ONE (07:38)
[2018-01-06 08:10] LABS: ALBUMIN 3.1 GM/DL (3.4-5.0); AST (GOT) 17 U/L (15-37); AUTOMATED NEUTROPHIL # 8.7 TH/MM3 (1.8-7.7); BASOPHIL % 0.3 % (0.0-2.0); BICARBONATE 23.6 MEQ/L (21.0-32.0); BLOOD UREA NITROGEN 15 MG/DL (7-18); CALCIUM 8.2 MG/DL (8.5-10.1); CHLORIDE 107 MEQ/L (98-107); CREATININE 1.07 MG/DL (0.60-1.30); EOSINOPHIL # 0.3 TH/MM3 (0-0.4); EOSINOPHIL % 2.5 % (0.0-4.0); GLOMERULAR FILTRATION RATE 79 ML/MIN (>89); GLUCOSE,RANDOM 97 MG/DL (74-106); HEMATOCRIT 37.6 % (39.0-51.0); HEMOGLOBIN 13.1 GM/DL (13.0-17.0); LYMPH % 17.1 % (9.0-44.0); LYMPHOCYTE # 2.1 TH/MM3 (1.0-4.8); MEAN CELL VOLUME 90.3 FL (80.0-100.0); MEAN CORPUSCULAR HEMOGLOBIN 31.6 PG (27.0-34.0); MEAN PLATELET VOLUME 7.3 FL (7.0-11.0); MONO % 8.6 % (0.0-8.0); NEUT % 71.5 % (16.0-70.0); PLATELET COUNT 288 TH/MM3 (150-450); RED BLOOD COUNT 4.16 MIL/MM3 (4.50-5.90); RED CELL DISTRIBUTION WIDTH 13.2 % (11.6-17.2); SODIUM (NA) 139 MEQ/L (136-145); WHITE BLOOD COUNT 12.1 TH/MM3 (4.0-11.0)
[2018-01-06 08:11] LABS: ALT (GPT) 34 U/L (12-78)
[2018-01-06 08:13] LABS: ALKALINE PHOSPHATASE 76 U/L (45-117); TOTAL BILIRUBIN ADULT 0.4 MG/DL (0.2-1.0); TOTAL PROTEIN 6.9 GM/DL (6.4-8.2)
[2018-01-06] MEDS: SODIUM CHLORIDE 0.9% FLUSH 10 ML FLUSH IV FLUSH SCH ×2 (09:00→19:40)
[2018-01-06] MEDS: CEFEPIME INJ 1,000 MG in SODIUM CHLORIDE 0.9% INJ 100 ML IV SCH (09:00)
[2018-01-06] MEDS ORDERED: MIDAZOLAM HCL 2 MG/2 ML VIAL ONE (09:03)
[2018-01-06] MEDS ORDERED: MORPHINE SULFATE 4 MG/ML INJ ONE (09:03)
--- NOTE | 2018-01-06 09:05 | MP ---
cc: Miller Rhodes MD DATE OF OPERATION: 01/06/2018 DATE OF PROCEDURE: 01/06/2018 PREOPERATIVE DIAGNOSIS: Scrotal abscess. POSTOPERATIVE DIAGNOSIS: Scrotal abscess. PROCEDURE PERFORMED: Incision and drainage of scrotal abscess. SURGEON: Miller Rhodes MD ANESTHESIA: General. COMPLICATIONS: None. SPECIMENS: Anaerobic and aerobic cultures. ESTIMATED BLOOD LOSS: Less than 5 mL. DISPOSITION: Table to recovery. INDICATION FOR PROCEDURE: The patient is a 37-year-old male who presented to [facility] 2 days ago with complaints of left scrotal pain radiating to his left groin. Denied fevers or chills. He had a CT and scrotal ultrasound done, which did not show anything significant other than a questionable nodule in his left posterior scrotum. On exam, it was fairly obvious that he had an approximately 2 cm abscess on his posterior left hemiscrotum and extending to his perineum. Treatment options were discussed. He elected to proceed with incision and drainage of this abscess. After risks, benefits, and alternatives were explained to the patient. The patient elected to proceed. Informed consent was obtained. DETAILS OF PROCEDURE: The patient was properly identified and brought back to the operating room and was laid supine on the operating table. Proper timeout was performed under direction of Anesthesiology, the patient was intubated and induced under general anesthetic. He has been on vancomycin and cefepime around the clock. Therefore, preoperative antibiotics were not indicated. He was then placed in dorsal lithotomy position, prepped and draped in the normal sterile surgical fashion. A stab incision was made over the fluctuant area in left hemiscrotum. Purulent material was expressed. A culture was obtained. The incision was extended to approximately 1.5 cm. I then used a hemostat and went up superficially into his left groin area to break up any remaining pus pockets. More purulent material was drained. The wound was then copiously irrigated out. Quarter-inch iodoform packing was then placed. This concluded the procedure. The patient was extubated and sent to recovery room in stable condition. He will be transferred back to the floor and have routine postoperative care. From a urology standpoint, it is okay to discharge him home with daily dressing changes and oral antibiotics. He can follow up in 7-10 days. Miller Rhodes MD EMSaniya/KD , 08:37 AM , 09:04 AM
[2018-01-06] MEDS ORDERED: *HYDROmorphone PF 0.5 MG/0.5 ML PERIprocedure ONLY ONE (09:09)
[2018-01-06] MEDS ORDERED: DO NOT ADM ANY ANTICOAGULANT DRUGS PRN (09:15)
[2018-01-06] MEDS: DOCUSATE SODIUM 50 MG/SENNA 8.6 MG TAB PO SCH ×2 (09:36→19:38)
[2018-01-06] MEDS: MORPHINE SULFATE 2 MG/ML SYRINGE IV PUSH PRN (10:46)
[2018-01-06] MEDS ORDERED: diphenhydrAMINE HCL 50 MG/ML VIAL IV PUSH ONE (11:45)
[2018-01-06] MEDS ORDERED: LIDOCAINE HCL 1% PF 5 ML SYRINGE OTHER ONE (12:00)
[2018-01-06] MEDS ORDERED: ROCURONIUM INJ 50 MG/5 ML SYRINGE IV PUSH ONE (12:00)
[2018-01-06] MEDS ORDERED: ONDANSETRON HCL 4 MG/2 ML VIAL IV PUSH ONE (12:00)
[2018-01-06] MEDS ORDERED: SUCCINYLCHOLINE CHLORIDE 100 MG/5 ML SYRINGE IV PUSH ONE (12:00)
[2018-01-06] MEDS ORDERED: PROPOFOL 200 MG/20 ML AMP IV ONE (12:00)
[2018-01-06] MEDS: HYDROmorphone HCL PF 2 MG/ML VIAL IV PUSH PRN ×2 (12:10→19:39)
[2018-01-06] MEDS ORDERED: PHARMACY ORDERED LAB ONE (15:45)
[2018-01-06] MEDS ORDERED: BENZOCAINE-MENTHOL (SUGAR FREE) 15 MG-3.6 MG LOZENGE BUCCAL PRN (16:00)
[2018-01-06] MEDS: BENZONATATE 100 MG CAP PO PRN (16:26)
--- NOTE | 2018-01-06 16:49 | HHI.PR ---
Subjective Remarks Patient is status post incision and drainage today. Pain is under control. Primary complaint is cough. Objective Vital Signs Date Time Temp Pulse Resp B/P (MAP) Pulse Ox O2 Delivery O2 Flow Rate FiO2 01/06/18 16:00 100.7 93 18 147/83 (104) 92 01/06/18 12:00 97.4 92 19 133/63 (86) 95 01/06/18 09:23 101 18 141/83 (102) 93 Nasal Cannula 3 01/06/18 09:06 91 18 151/72 (98) 93 Nasal Cannula 3 01/06/18 08:57 98.2 116 18 159/85 (109) 99 Nasal Cannula 3 01/06/18 08:00 97.9 84 19 128/58 (81) 95 01/06/18 04:00 97.8 87 19 149/82 (104) 95 01/06/18 00:00 98.1 85 19 156/78 (104) 95 01/05/18 20:00 99 01/05/18 20:00 98.4 90 19 154/81 (105) 96 I/O 01/05/18 01/05/18 01/05/18 01/06/18 01/06/18 01/06/18 07:00 15:00 23:00 07:00 15:00 23:00 Intake Total 1274 ml 2730 ml 0 ml Output Total 317 ml 20 ml Balance 1274 ml -317 ml 2730 ml -20 ml Intake Oral 240 ml 600 ml 0 ml IV Total 1034 ml 2130 ml Output Urine Total 317 ml Estimated Blood Loss 20 ml # Voids 0 0 # Bowel Movements 0 Result Diagram: 01/06/18 0639 01/06/18 0639 Objective Remarks GENERAL: NAD, A&Ox3 HEAD: Normocephalic. NECK: Supple, trachea midline. No lymphadenopathy. EYES: No scleral icterus. No injection or drainage. CARDIOVASCULAR: Regular rate and rhythm without murmurs, gallops, or rubs. RESPIRATORY: Breath sounds equal bilaterally. No accessory muscle use. GASTROINTESTINAL: Abdomen soft, non-tender, nondistended. MUSCULOSKELETAL: No cyanosis, or edema. SKIN: Warm and dry. NEURO: No focal neurological deficitis. GENITAL/URINARY: left sided induration and erythema of scrotum with tenderness. Palpable induration at left inguinal canal. Small nodular focus at perineal/ scrotal margin. No visible evidence of necrosis. A/P Problem List: (1) HTN (hypertension) ICD Code: I10 - Essential (primary) hypertension (2) Tobacco abuse ICD Code: Z72.0 - Tobacco use (3) Cellulitis of groin, left ICD Code: L03.314 - Cellulitis of groin Status: Acute (4) Sepsis ICD Code: A41.9 - Sepsis, unspecified organism Status: Acute (5) Cellulitis of scrotum ICD Code: N49.2 - Inflammatory disorders of scrotum Status: Acute Assessment and Plan 37 year old male, admitted with scrotal cellulitis Status post I&D. We will continue to follow cultures. Continue antibiotics. Tessalon Perles and Cepacol added as treatment for cough. Sepsis Resolved Scrotal Cellulitis Pt reports worsening in last 24 hours Left Inguinal Canal Edema Continue Vancomycin Continue Zosyn Urology consulted Hypertension Continue baseline treatment Follow blood pressures Adjust treatments as needed Tobacco abuse NicoDerm DVT prophylaxis SCDs Problem Qualifiers (1) Sepsis: Qualified Codes: A41.9 - Sepsis, unspecified organism Jose Alejandro Marie MD Jan 06, 2018 16:49
[2018-01-06] MEDS: diphenhydrAMINE HCL 25 MG CAP PO PRN (19:51)
[2018-01-07] VITALS: BP 130/71; PULSE 102; RESP 17; TEMP 98.7; O2SAT 95
[2018-01-07] MEDS: SODIUM CHLOR 0.9% 1000 ML INJ 1,000 ML IV SCH ×3 (00:06→20:50)
[2018-01-07] MEDS: HYDROmorphone HCL PF 2 MG/ML VIAL IV PUSH PRN ×6 (00:07→23:07)
[2018-01-07] MEDS: BENZONATATE 100 MG CAP PO PRN ×2 (00:10→13:19)
[2018-01-07] MEDS: oxyCODONE/ACETAMINOPHEN 10 MG/325 MG TAB PO PRN ×5 (02:46→20:40)
[2018-01-07] MEDS: VANCOMYCIN INJ 2,000 MG in SODIUM CHLORID 0.9% 500 ML INJ 500 ML IV SCH ×2 (02:46→16:32)
[2018-01-07 04:00] VITALS: BP 147/70; PULSE 88; RESP 17; TEMP 98; O2SAT 92
[2018-01-07] MEDS: diphenhydrAMINE HCL 25 MG CAP PO PRN (06:19)
[2018-01-07 08:00] VITALS: BP 138/77; PULSE 78; RESP 17; TEMP 98.6; O2SAT 94
[2018-01-07 08:34] LABS: AUTOMATED NEUTROPHIL # 11.9 TH/MM3 (1.8-7.7); BASOPHIL # 0.1 TH/MM3 (0-0.2); BASOPHIL % 0.3 % (0.0-2.0); EOSINOPHIL # 0.3 TH/MM3 (0-0.4); EOSINOPHIL % 1.9 % (0.0-4.0); HEMATOCRIT 38.7 % (39.0-51.0); HEMOGLOBIN 13.7 GM/DL (13.0-17.0); LYMPHOCYTE # 2.4 TH/MM3 (1.0-4.8); MEAN CELL VOLUME 90.2 FL (80.0-100.0); MEAN CORPUSCULAR HEMOGLOBIN 31.8 PG (27.0-34.0); MEAN CORPUSCULAR HGB CONC 35.3 % (32.0-36.0); MEAN PLATELET VOLUME 6.8 FL (7.0-11.0); MONO % 9.8 % (0.0-8.0); MONOCYTE # 1.6 TH/MM3 (0-0.9); PLATELET COUNT 357 TH/MM3 (150-450); RED BLOOD COUNT 4.29 MIL/MM3 (4.50-5.90); RED CELL DISTRIBUTION WIDTH 13.3 % (11.6-17.2); WHITE BLOOD COUNT 16.3 TH/MM3 (4.0-11.0)
[2018-01-07 09:00] LABS: ALBUMIN 2.9 GM/DL (3.4-5.0); AST (GOT) 17 U/L (15-37); BICARBONATE 24.7 MEQ/L (21.0-32.0); BLOOD UREA NITROGEN 12 MG/DL (7-18); CALCIUM 8.6 MG/DL (8.5-10.1); CHLORIDE 103 MEQ/L (98-107); CREATININE 1.09 MG/DL (0.60-1.30); GLOMERULAR FILTRATION RATE 77 ML/MIN (>89); GLUCOSE,RANDOM 107 MG/DL (74-106); SODIUM (NA) 136 MEQ/L (136-145)
[2018-01-07 09:05] LABS: ALKALINE PHOSPHATASE 85 U/L (45-117); ALT (GPT) 35 U/L (12-78); TOTAL PROTEIN 7.3 GM/DL (6.4-8.2)
[2018-01-07] MEDS: CEFEPIME INJ 1,000 MG in SODIUM CHLORIDE 0.9% INJ 100 ML IV SCH (09:21)
[2018-01-07] MEDS: DOCUSATE SODIUM 50 MG/SENNA 8.6 MG TAB PO SCH ×2 (09:22→20:52)
[2018-01-07] MEDS: SODIUM CHLORIDE 0.9% FLUSH 10 ML FLUSH IV FLUSH SCH ×2 (09:22→20:52)
[2018-01-07 10:05] VITALS: O2SAT 94
[2018-01-07 12:00] VITALS: BP 136/84; PULSE 87; RESP 18; TEMP 97.9; O2SAT 92
--- NOTE | 2018-01-07 12:15 | HHI.PR ---
Subjective Remarks Increased swelling. Fever present overnight. Drainage present at surgical site. Pain is controlled. Objective Vital Signs Date Time Temp Pulse Resp B/P (MAP) Pulse Ox O2 Delivery O2 Flow Rate FiO2 01/07/18 10:05 94 Nasal Cannula 3.00 01/07/18 08:00 98.6 78 17 138/77 (97) 94 01/07/18 04:00 98.0 88 17 147/70 (95) 92 01/07/18 00:00 98.7 102 17 130/71 (90) 95 01/06/18 20:00 99.6 106 18 116/71 (86) 90 01/06/18 17:47 93 Nasal Cannula 3.00 01/06/18 16:00 100.7 93 18 147/83 (104) 92 I/O 01/06/18 01/06/18 01/06/18 01/07/18 01/07/18 01/07/18 07:00 15:00 23:00 07:00 15:00 23:00 Intake Total 2730 ml 0 ml 1728 ml 1740 ml Output Total 20 ml Balance 2730 ml -20 ml 1728 ml 1740 ml Intake Oral 600 ml 0 ml 500 ml 240 ml IV Total 2130 ml 1228 ml 1500 ml Estimated Blood Loss 20 ml # Voids 0 2 2 # Bowel Movements 0 Result Diagram: 01/07/1812 01/07/18 0812 Objective Remarks GENERAL: NAD, A&Ox3 HEAD: Normocephalic. NECK: Supple, trachea midline. No lymphadenopathy. EYES: No scleral icterus. No injection or drainage. CARDIOVASCULAR: Regular rate and rhythm without murmurs, gallops, or rubs. RESPIRATORY: Breath sounds equal bilaterally. No accessory muscle use. GASTROINTESTINAL: Abdomen soft, non-tender, nondistended. MUSCULOSKELETAL: No cyanosis, scrotal edema and erythema, edema present over symphysis pubis greater at left and right. No palpable abscess. SKIN: Warm and dry. NEURO: No focal neurological deficitis. GENITAL/URINARY: left sided induration and erythema of scrotum with tenderness. Palpable induration at left inguinal canal. Small nodular focus at perineal/ scrotal margin. No visible evidence of necrosis. A/P Problem List: (1) HTN (hypertension) ICD Code: I10 - Essential (primary) hypertension (2) Tobacco abuse ICD Code: Z72.0 - Tobacco use (3) Cellulitis of groin, left ICD Code: L03.314 - Cellulitis of groin Status: Acute (4) Sepsis ICD Code: A41.9 - Sepsis, unspecified organism Status: Acute (5) Cellulitis of scrotum ICD Code: N49.2 - Inflammatory disorders of scrotum Status: Acute Assessment and Plan 37 year old male, admitted with scrotal cellulitis Evidence of poor response to present treatment. Infectious disease consulted. Gentamicin and metronidazole added. Status post I&D. We will continue to follow cultures. Continue to monitor with physical exams. Sepsis Resolved Scrotal Cellulitis Unimproved Left Inguinal Canal Edema Continue Vancomycin Continue Zosyn Gentamicin started Metronidazole started Infectious disease consult Urology consulted Hypertension Continue baseline treatment Follow blood pressures Adjust treatments as needed Tobacco abuse NicoDerm DVT prophylaxis SCDs Problem Qualifiers (1) Sepsis: Qualified Codes: A41.9 - Sepsis, unspecified organism Jose Alejandro Marie MD Jan 07, 2018 12:15
[2018-01-07] MEDS: metroNIDAZOLE 500 MG INJ 100 ML IV SCH ×2 (12:16→20:50)
--- NOTE | 2018-01-07 12:47 | HHI.PR ---
Subjective Patient symptoms today pain worsening in suprapubic areas, extending down left leg. Also c/o more swelling in scrotum. Denies fevers, chills. Voiding well on own. Objective Vital Signs Vital Signs Date Time Temp Pulse Resp B/P (MAP) Pulse Ox O2 Delivery O2 Flow Rate FiO2 01/07/18 10:05 94 Nasal Cannula 3.00 01/07/18 08:00 98.6 78 17 138/77 (97) 94 01/07/18 04:00 98.0 88 17 147/70 (95) 92 01/07/18 00:00 98.7 102 17 130/71 (90) 95 01/06/18 20:00 99.6 106 18 116/71 (86) 90 01/06/18 17:47 93 Nasal Cannula 3.00 01/06/18 16:00 100.7 93 18 147/83 (104) 92 Intake & Output 01/07/18 01/07/18 07:00 19:00 Intake Total 2740 ml Balance 2740 ml Intake Oral 240 ml IV Total 2500 ml # Voids 2 Result Diagram: 01/07/18 0812 01/07/18 0812 Objective Remarks NAD. abd soft suprapubic area erythematous, L> R, warm, indurated, extending down left leg and left groin; improved since this morning based on dashed line srotum swollen but soft, non-tender packing in place Medications and IVs Current Medications Medications (Trade) Dose Ordered Sig/Irena Route Start Time Stop Time Status Last Admin Pharmacy Profile Note 0 ml @ 0 mls/hr UNSCH OTHER 01/04/18 21:45 Cefepime HCl 1000 mg/Sodium Chloride 100 ml @ 200 mls/hr Q12H IV 01/05/18 09:00 01/07/18 09:21 Sodium Chloride 1,000 ml @ 100 mls/hr Q10H IV 01/04/18 21:44 01/07/18 09:27 (NS Flush) 2 ml UNSCH PRN IV FLUSH 01/04/18 21:45 (NS Flush) 2 ml BID IV FLUSH 01/05/18 09:00 01/07/18 09:22 (Zofran Inj) 4 mg Q6H PRN IVP 01/04/18 21:45 (Tylenol) 650 mg Q6H PRN PO 01/04/18 21:45 (Patsy-Colace) 1 tab BID PO 01/05/18 09:00 01/07/18 09:22 (Milk Of Magnesia Liq) 30 ml Q12H PRN PO 01/04/18 21:45 (Senokot) 17.2 mg Q12H PRN PO 01/04/18 21:45 (Dulcolax Supp) 10 mg DAILY PRN RECTAL 01/04/18 21:45 (Lactulose Liq) 30 ml DAILY PRN PO 01/04/18 21:45 (Dilaudid Pf Inj) 1 mg Q4H PRN IV PUSH 01/04/18 23:15 01/07/18 09:22 (Percocet 5-325 Mg) 1 tab Q4H PRN PO 01/05/18 10:15 (Percocet 10-325 Mg) 1 tab Q4H PRN PO 01/05/18 10:15 01/07/18 12:19 (Morphine Inj) 2 mg Q4H PRN IV PUSH 01/05/18 10:15 Future Hold 01/06/18 10:46 Lactated Ringer's 1,000 ml @ 30 mls/hr Q24H PRN IV 01/06/18 04:45 01/09/18 04:44 (Betadine 5% Antisepsis Kit) 1 applic [employer] PRN EACH NARE 01/06/18 04:45 01/09/18 04:44 (Chlorhexidine 2% Cloth) 3 pack [employer] PRN TOPICAL 01/06/18 04:45 01/09/18 04:44 (Benadryl) 25 mg Q6H PRN PO 01/06/18 11:45 01/07/18 06:19 (Tessalon) 200 mg TID PRN PO 01/06/18 16:00 01/07/18 00:10 (Cepacol Extra Ha (Sugar Free)) 1 lozenge Q2HR PRN BUCCAL 01/06/18 16:00 Vancomycin HCl 2000 mg/Sodium Chloride 520 ml @ 250 mls/hr Q12H IV 01/07/18 04:00 01/07/18 02:46 Miscellaneous Information SPECIFIC LAB TO BE DRAWN:VANCO TROUGH DATE TO BE DRTanner.. ONCE ONCE .XX 01/08/18 03:45 01/08/18 03:46 Metronidazole 100 ml @ 100 mls/hr Q6H IV 01/07/18 12:00 01/07/18 12:16 Gentamicin Sulfate 300 mg/ Sodium Chloride 107.5 ml @ 100 mls/hr Q8H IV 01/07/18 13:00 Assessment and Plan Assessment and Plan POD #1 s/p I & D scrotal abscess -Check CT Pelvis w/o Contrast. Since it has improved, could be inflammatory reaction from procedure yesterday. -Agree with ID consult- -Dressing changes daily -Miller Ashraf MD Jan 07, 2018 12:47
[2018-01-07] MEDS ORDERED: GENTAMICIN INJ 300 MG in SODIUM CHLORIDE 0.9% INJ 100 ML IV SCH (13:00)
--- NOTE | 2018-01-07 15:09 | PD.CONS ---
History of Present Illness Service Infectious disease Consult Requested By Dr. Marie Reason for Consult Evaluate patient with scrotal cellulitis, abscess, slow to improve Primary Care Physician No Primary Care Physician Diagnoses: History of Present Illness Patient seen and examined. Records reviewed. Patient is a 37-year-old male, presented to the hospital complaining of pain in his scrotum. He apparently felt like a cyst in his scrotum and it was therefore a while and had gotten bigger. He felt like it popped inside and soon after that he noted swelling and redness and pain in his scrotum. He denies any fever or chills. He has no trauma. He has not had any problem with urination. Denies any penile discharge, denies any problem with constipation. Imaging study revealed evidence of cellulitis. Urology saw the patient and he was taken to surgery and had I&D of the scrotal abscess. Today it was noted that he has had increasing scrotal swelling. White count went up to 16,000. He had some low-grade temps in the last 24 hours. He still complains of significant pain in his groin and in his scrotum. Infectious disease consultation has been requested to evaluate the patient. Patient had been on Vanco and Zosyn, and the Zosyn was stopped and he was started on Flagyl and gentamicin. Review of Systems Constitutional: COMPLAINS OF: Fever, Chills Eyes: DENIES: Eye pain Ears, nose, mouth, throat: DENIES: Nasal discharge, Oral lesions, Throat pain, Ear Pain, Sinus Pain Respiratory: DENIES: Cough, Shortness of breath Cardiovascular: DENIES: Chest pain, Palpitations, Syncope, Dyspnea on Exertion Gastrointestinal: DENIES: Abdominal pain, Diarrhea, Nausea, Vomiting Genitourinary: COMPLAINS OF: Testicular Pain, Testicular Swelling Musculoskeletal: COMPLAINS OF: Back pain Integumentary: DENIES: Rash Neurologic: DENIES: Headache, Localized weakness Psychiatric: DENIES: Hallucinations Past Family Social History Allergies: Coded Allergies: No Known Allergies (Verified Allergy, Mild, 08/02/17) Past Medical History HTN Migraine Renal Stones Past Surgical History Wrist surgery Active Ordered Medications Current Medications Medications (Trade) Dose Ordered Sig/Irena Route Start Time Stop Time Status Last Admin Pharmacy Profile Note 0 ml @ 0 mls/hr UNSCH OTHER 01/04/18 21:45 Cefepime HCl 1000 mg/Sodium Chloride 100 ml @ 200 mls/hr Q12H IV 01/05/18 09:00 01/07/18 09:21 Sodium Chloride 1,000 ml @ 100 mls/hr Q10H IV 01/04/18 21:44 01/07/18 09:27 (NS Flush) 2 ml UNSCH PRN IV FLUSH 01/04/18 21:45 (NS Flush) 2 ml BID IV FLUSH 01/05/18 09:00 01/07/18 09:22 (Zofran Inj) 4 mg Q6H PRN IVP 01/04/18 21:45 (Tylenol) 650 mg Q6H PRN PO 01/04/18 21:45 (Patsy-Colace) 1 tab BID PO 01/05/18 09:00 01/07/18 09:22 (Milk Of Magnesia Liq) 30 ml Q12H PRN PO 01/04/18 21:45 (Senokot) 17.2 mg Q12H PRN PO 01/04/18 21:45 (Dulcolax Supp) 10 mg DAILY PRN RECTAL 01/04/18 21:45 (Lactulose Liq) 30 ml DAILY PRN PO 01/04/18 21:45 (Dilaudid Pf Inj) 1 mg Q4H PRN IV PUSH 01/04/18 23:15 01/07/18 13:21 (Percocet 5-325 Mg) 1 tab Q4H PRN PO 01/05/18 10:15 (Percocet 10-325 Mg) 1 tab Q4H PRN PO 01/05/18 10:15 01/07/18 12:19 (Morphine Inj) 2 mg Q4H PRN IV PUSH 01/05/18 10:15 Future Hold 01/06/18 10:46 Lactated Ringer's 1,000 ml @ 30 mls/hr Q24H PRN IV 01/06/18 04:45 01/09/18 04:44 (Betadine 5% Antisepsis Kit) 1 applic [employer] PRN EACH NARE 01/06/18 04:45 01/09/18 04:44 (Chlorhexidine 2% Cloth) 3 pack [employer] PRN TOPICAL 01/06/18 04:45 01/09/18 04:44 (Benadryl) 25 mg Q6H PRN PO 01/06/18 11:45 01/07/18 06:19 (Tessalon) 200 mg TID PRN PO 01/06/18 16:00 01/07/18 13:19 (Cepacol Extra Ha (Sugar Free)) 1 lozenge Q2HR PRN BUCCAL 01/06/18 16:00 Vancomycin HCl 2000 mg/Sodium Chloride 520 ml @ 250 mls/hr Q12H IV 01/07/18 04:00 01/07/18 02:46 Miscellaneous Information SPECIFIC LAB TO BE DRAWN:VANCO TROUGH DATE TO BE DR... ONCE ONCE .XX 01/08/18 03:45 01/08/18 03:46 Metronidazole 100 ml @ 100 mls/hr Q6H IV 01/07/18 12:00 01/07/18 12:16 Gentamicin Sulfate 300 mg/ Sodium Chloride 107.5 ml @ 100 mls/hr Q8H IV 01/07/18 13:00 01/07/18 13:19 Family History Unremarkable Social History Occasional alcohol. Smokes 2ppd. Negative for drugs Physical Exam Vital Signs Vital Signs Date Time Temp Pulse Resp B/P (MAP) Pulse Ox O2 Delivery O2 Flow Rate FiO2 01/07/18 12:00 97.9 87 18 136/84 (101) 92 01/07/18 10:05 94 Nasal Cannula 3.00 01/07/18 08:00 98.6 78 17 138/77 (97) 94 01/07/18 04:00 98.0 88 17 147/70 (95) 92 01/07/18 00:00 98.7 102 17 130/71 (90) 95 01/06/18 20:00 99.6 106 18 116/71 (86) 90 01/06/18 17:47 93 Nasal Cannula 3.00 01/06/18 16:00 100.7 93 18 147/83 (104) 92 Physical Exam GENERAL: Patient is a well-nourished, well-developed male, awake and alert, not in respiratory distress. SKIN: Warm and dry. No generalized rash, no ecchymoses and no evidence of embolic lesions. HEAD: Atraumatic. Normocephalic. No temporal wasting, or tenderness. EYES: [place] conjunctiva. No petechia or hemorrhage. Pupils equal, round and reactive to light. Extraocular movements full and intact. No scleral icterus. No injection or drainage. EARS, NOSE AND THROAT: Nose without bleeding or purulent nasal discharge. No sinus tenderness. Mucous membranes pink and moist. No oral lesions noted. No exudate. No oral thrush. NECK: Trachea midline. Supple and not tender, no meningeal signs CARDIOVASCULAR: Regular rate and rhythm. No murmurs, rubs or gallops heard RESPIRATORY: Clear to auscultation. Breath sounds equal bilaterally. No rales , wheezing or rhonchi ABDOMEN: Soft, obese, non-tender, nondistended. Bowel sounds present and normoactive. No guarding. No rebound. No organomegaly. Has induration and tenderness in both groin, worse of L side. Area of redness in his L thigh has improved. : Very swollen, firm indurated scrotum, with tenderness, and there is a wick in inferior part where I and D was done. There is induration and redness in the perineum on R side EXTREMITIES: No clubbing, cyanosis, or edema. No joint effusion, has good ROM. No calf tenderness. Well perfused and warm. NEUROLOGICAL: Awake and alert. Cranial nerves grossly intact. Motor grossly within normal limits. PSYCHIATRIC: Normal affect, calm and cooperative. LINE: No evidence of infection Laboratory Laboratory Tests Test 01/06/18 15:45 01/07/18 08:12 Vancomycin Level Trough 2.3 White Blood Count 16.3 Red Blood Count 4.29 Hemoglobin 13.7 Hematocrit 38.7 Mean Corpuscular Volume 90.2 Mean Corpuscular Hemoglobin 31.8 Mean Corpuscular Hemoglobin Concent 35.3 Red Cell Distribution Width 13.3 Platelet Count 357 Mean Platelet Volume 6.8 Neutrophils (%) (Auto) 73.0 Lymphocytes (%) (Auto) 15.0 Monocytes (%) (Auto) 9.8 Eosinophils (%) (Auto) 1.9 Basophils (%) (Auto) 0.3 Neutrophils # (Auto) 11.9 Lymphocytes # (Auto) 2.4 Monocytes # (Auto) 1.6 Eosinophils # (Auto) 0.3 Basophils # (Auto) 0.1 CBC Comment DIFF FINAL Differential Comment Blood Urea Nitrogen 12 Creatinine 1.09 Random Glucose 107 Total Protein 7.3 Albumin 2.9 Calcium Level 8.6 Alkaline Phosphatase 85 Aspartate Amino Transf (AST/SGOT) 17 Alanine Aminotransferase (ALT/SGPT) 35 Total Bilirubin 1.0 Sodium Level 136 Potassium Level 3.9 Chloride Level 103 Carbon Dioxide Level 24.7 Anion Gap 8 Estimat Glomerular Filtration Rate 77 Date/Time Source Procedure Growth Status 01/06/18 08:26 Abscess Scrotum Fungal Smear - Final NO FUNGAL ELEMENTS SEEN. Resulted 01/06/18 08:26 Abscess Scrotum Fungal Culture Pending Resulted Result Diagram: 01/07/1812 01/07/1812 Imaging RADIOLOGY STUDIES/FILMS REVIEWED Last Impressions Abdomen/Pelvis CT 01/04/182010 Signed Impressions: Service Date/Time: December 20:34 - CONCLUSION: Edematous changes around the left inguinal canal Greg Bardales MD Scrotum Ultrasound 01/04/181808 Signed Impressions: Service Date/Time: December 19:12 - CONCLUSION: Testicles are nonacute in appearance. Microlithiasis noted. Edematous changes in the left inguinal canal. Greg Bardales MD Assessment and Plan Assessment and Plan IMPRESSION Scrotal cellulitis and abscess, extends to perineum and thigh - S/P I and D - scrotum more swollen - WBC higher- ?reactive post-op - cellulitis in thigh better RECOMMENDATION Continue vancomycin Continue Flagyl Stop gentamicin and use cefepime 2 blood cultures Follow CBC Follow cultures and adjust antibiotics Will determine course of treatment once workup is completed I will follow along with you Thank you for this consultation Discussed Condition With Explained plan to the patient Uyen Zamora MD Jan 07, 2018 15:09
--- NOTE | 2018-01-07 15:54 | RADRPT ---
EXAM DATE/TIME: 01/07/2018 15:10 [facility] COMPARISON: CT ABDOMEN & PELVIS W CONTRAST, January 04, 2018, 20:34. INDICATIONS : testicular swelling post cyst drainage ORAL CONTRAST: No oral contrast ingested. RADIATION DOSE: 24.19 CTDIvol (mGy) MEDICAL HISTORY : Cardiovascular disease. Hypertension. Gastroesophageal reflux disease.Renal stones SURGICAL HISTORY : Recent drainage of testicular cyst. ENCOUNTER: Initial ACUITY: 1 day PAIN SCALE: 9/10 LOCATION: Left testicular area TECHNIQUE: Volumetric scanning of the pelvis was performed. Using automated exposure control and adjustment of the mA and/or kV according to patient size, radiation dose was kept as low as reasonably achievable t o obtain optimal diagnostic quality images. DICOM format image data is available electronically for review and comparison. FINDINGS: BOWEL/MESENTERY: The visualized small and large bowel demonstrate no acute abnormality. There is no free fluid. BLADDER: There is no wall thickening or mass. RETROPERITONEUM: There is no aneurysm or lymphadenopathy. REPRODUCTIVE: Air and stranding is identified in the subcutaneous tissues at the superior base of the penis on the left in the dorsal based central and. There is some increasing air and fluid in the scrotal sac INGUI NAL: There is no lymphadenopathy or hernia. MUSCULOSKELETAL: Within normal limits for patient age. CONCLUSION: 1. Air density in the left superior base and central dorsal base of the penis. Findings could be rela nancy to the recent surgical intervention although developing cellulitis cannot be excluded. 2. Similarly, increasing fluid and air in both sides of the hemiscrotum surrounding the testicles. Ag ain, this could all be postsurgical but developing scrotal abscess cannot be excluded based on imagin g alone. James York MD on January 07, 2018 at 15:48 Board Certified Radiologist. This report was verified electronically.
[2018-01-07] MEDS: MAGNESIUM HYDROXIDE SUSP 30 ML CUP PO PRN (18:29)
[2018-01-07 20:00] VITALS: BP 133/74; PULSE 78; RESP 19; TEMP 98.3; O2SAT 93
[2018-01-07] MEDS ORDERED: CEFEPIME INJ 2,000 MG in SODIUM CHLORIDE 0.9% INJ 100 ML IV SCH (21:00)
[2018-01-07] MEDS: CEFEPIME INJ 2,000 MG in SODIUM CHLORIDE 0.9% INJ 100 ML IV SCH (23:10)
[2018-01-08] VITALS (7 sets, daily range): BP systolic 132–159; BP diastolic 60–94; PULSE 78–101; RESP 17–20; TEMP 97.8–98.4; O2SAT 93–98
[2018-01-08] MEDS: oxyCODONE/ACETAMINOPHEN 10 MG/325 MG TAB PO PRN ×3 (01:05→18:01)
[2018-01-08] MEDS: metroNIDAZOLE 500 MG INJ 100 ML IV SCH ×4 (01:05→18:01)
[2018-01-08] MEDS ORDERED: PHARMACY ORDERED LAB ONE (03:45)
[2018-01-08] MEDS: HYDROmorphone HCL PF 2 MG/ML VIAL IV PUSH PRN (04:19)
[2018-01-08] MEDS: VANCOMYCIN INJ 2,000 MG in SODIUM CHLORID 0.9% 500 ML INJ 500 ML IV SCH ×2 (04:28→15:29)
[2018-01-08] MEDS: diphenhydrAMINE HCL 25 MG CAP PO PRN (04:32)
[2018-01-08] MEDS: SODIUM CHLOR 0.9% 1000 ML INJ 1,000 ML IV SCH ×2 (05:44→15:29)
[2018-01-08] MEDS ORDERED: diphenhydrAMINE HCL 50 MG/ML VIAL IV PUSH ONE (06:00)
[2018-01-08 07:43] LABS: AUTOMATED NEUTROPHIL # 7.7 TH/MM3 (1.8-7.7); BASOPHIL % 0.3 % (0.0-2.0); EOSINOPHIL # 0.3 TH/MM3 (0-0.4); EOSINOPHIL % 3.1 % (0.0-4.0); HEMATOCRIT 36.9 % (39.0-51.0); HEMOGLOBIN 12.8 GM/DL (13.0-17.0); LYMPH % 14.9 % (9.0-44.0); LYMPHOCYTE # 1.6 TH/MM3 (1.0-4.8); MEAN CELL VOLUME 90.8 FL (80.0-100.0); MEAN CORPUSCULAR HEMOGLOBIN 31.4 PG (27.0-34.0); MEAN CORPUSCULAR HGB CONC 34.6 % (32.0-36.0); MEAN PLATELET VOLUME 6.8 FL (7.0-11.0); MONOCYTE # 1.1 TH/MM3 (0-0.9); NEUT % 71.7 % (16.0-70.0); PLATELET COUNT 355 TH/MM3 (150-450); RED BLOOD COUNT 4.06 MIL/MM3 (4.50-5.90); RED CELL DISTRIBUTION WIDTH 13.2 % (11.6-17.2); WHITE BLOOD COUNT 10.7 TH/MM3 (4.0-11.0)
[2018-01-08 08:14] LABS: ALBUMIN 3.1 GM/DL (3.4-5.0); AST (GOT) 19 U/L (15-37); BICARBONATE 24.6 MEQ/L (21.0-32.0); BLOOD UREA NITROGEN 11 MG/DL (7-18); CALCIUM 8.5 MG/DL (8.5-10.1); CHLORIDE 102 MEQ/L (98-107); GLUCOSE,RANDOM 112 MG/DL (74-106); SODIUM (NA) 136 MEQ/L (136-145)
[2018-01-08 08:16] LABS: ALT (GPT) 31 U/L (12-78); CREATININE 0.99 MG/DL (0.60-1.30); GLOMERULAR FILTRATION RATE 86 ML/MIN (>89); TOTAL BILIRUBIN ADULT 0.5 MG/DL (0.2-1.0); TOTAL PROTEIN 7.1 GM/DL (6.4-8.2)
[2018-01-08 08:17] LABS: ALKALINE PHOSPHATASE 80 U/L (45-117)
[2018-01-08] MEDS: DOCUSATE SODIUM 50 MG/SENNA 8.6 MG TAB PO SCH ×2 (08:23→21:33)
[2018-01-08] MEDS: CEFEPIME INJ 2,000 MG in SODIUM CHLORIDE 0.9% INJ 100 ML IV SCH ×2 (08:24→21:33)
[2018-01-08] MEDS: SODIUM CHLORIDE 0.9% FLUSH 10 ML FLUSH IV FLUSH SCH ×2 (08:25→21:33)
--- NOTE | 2018-01-08 15:21 | HHI.PR ---
Subjective Remarks Follow-up scrotal abscess January 08, 2018-patient seen and examined, reports worsening scrotal swelling, pain and surrounding cellulitis. Had episode of hallucination however resolved. Currently afebrile Objective Vitals Vital Signs Date Time Temp Pulse Resp B/P (MAP) Pulse Ox O2 Delivery O2 Flow Rate FiO2 01/08/18 12:00 98.1 84 18 136/94 (108) 96 01/08/18 09:28 98 Nasal Cannula 3.00 01/08/18 08:00 97.8 95 20 139/93 (108) 98 01/08/18 00:00 97.8 78 17 132/60 (84) 93 01/07/18 20:00 98.3 78 19 133/74 (93) 93 I/O 01/07/18 01/07/18 01/07/18 01/08/18 01/08/18 01/08/18 07:00 15:00 23:00 07:00 15:00 23:00 Intake Total 1740 ml 100 ml 2400 ml 500 ml 100 ml Balance 1740 ml 100 ml 2400 ml 500 ml 100 ml Intake Oral 240 ml 1200 ml IV Total 1500 ml 100 ml 1200 ml 500 ml 100 ml # Voids 2 3 # Bowel Movements 0 Result Diagram: 01/08/18 0650 01/08/18 0650 Imaging Last Impressions Pelvis CT 01/07/18 0000 Signed Impressions: Service Date/Time: Sunday, January 07, 2018 15:10 - CONCLUSION: 1. Air density in the left superior base and central dorsal base of the penis. Findings could be related to the recent surgical intervention although developing cellulitis cannot be excluded. 2. Similarly, increasing fluid and air in both sides of the hemiscrotum surrounding the testicles. Again, this could all be postsurgical but developing scrotal abscess cannot be excluded based on imaging alone. James York MD Abdomen/Pelvis CT 01/04/182010 Signed Impressions: Service Date/Time: December 20:34 - CONCLUSION: Edematous changes around the left inguinal canal Greg Bardales MD Scrotum Ultrasound 01/04/181808 Signed Impressions: Service Date/Time: December 19:12 - CONCLUSION: Testicles are nonacute in appearance. Microlithiasis noted. Edematous changes in the left inguinal canal. Greg Bardales MD Objective Remarks GENERAL: NAD SKIN: Warm and dry. Worsening erythema and cellulitis extending up to pelvic area as well as thighs HEAD: Normocephalic. EYES: No scleral icterus. No injection or drainage. NECK: Supple, trachea midline. No JVD or lymphadenopathy. CARDIOVASCULAR: Regular rate and rhythm without murmurs, gallops, or rubs. RESPIRATORY: Breath sounds equal bilaterally. No accessory muscle use. GASTROINTESTINAL: Abdomen soft, non-tender, nondistended. MUSCULOSKELETAL: No cyanosis, or edema. : Extensive scrotal swelling BACK: Nontender without obvious deformity. No CVA tenderness. A/P Problem List: (1) Sepsis ICD Code: A41.9 - Sepsis, unspecified organism Status: Acute (2) Cellulitis of groin, left ICD Code: L03.314 - Cellulitis of groin Status: Acute (3) Tobacco abuse ICD Code: Z72.0 - Tobacco use (4) HTN (hypertension) ICD Code: I10 - Essential (primary) hypertension Assessment and Plan 37-year-old man with Sepsis Resolved Scrotal Cellulitis and abscess Worsening scrotal cellulitis and swelling S/P I and D and management per urology Continue Vancomycin, Flagyl per ID Hypertension Continue baseline treatment Tobacco abuse NicoDerm DVT prophylaxis SCDs Problem Qualifiers (1) Sepsis: Qualified Codes: A41.9 - Sepsis, unspecified organism Bharathi Valles MD Jan 08, 2018 15:21
--- NOTE | 2018-01-08 15:45 | HHI.PR ---
Subjective Patient symptoms today Pt is with scrotal cellulitis and abscess was seen for f/u today. s/p I&D of abscess on 01/06/18. VS are stable. Labs are improving. He still c/o erythema and scrotal swelling as well as pain 03/27. No voiding c/o Packing removed He states that had a lot of d/c from the scrotal wound overnight and swelling decreased bust since had IV antbx this morning it swell up again Objective Vital Signs Vital Signs Date Time Temp Pulse Resp B/P (MAP) Pulse Ox O2 Delivery O2 Flow Rate FiO2 01/08/18 12:00 98.1 84 18 136/94 (108) 96 01/08/18 09:28 98 Nasal Cannula 3.00 01/08/18 08:00 97.8 95 20 139/93 (108) 98 01/08/18 00:00 97.8 78 17 132/60 (84) 93 01/07/18 20:00 98.3 78 19 133/74 (93) 93 Intake & Output 01/08/18 01/08/18 07:00 19:00 Intake Total 1500 ml 100 ml Balance 1500 ml 100 ml IV Total 1500 ml 100 ml Result Diagram: 01/08/18 0650 01/08/18 0650 Objective Remarks NAD. abd soft suprapubic area erythematous, Left groin is tender and firm, erythematous as well. minimal d/c from scrotal incision srotum swollen but soft, non-tender Medications and IVs Current Medications Medications (Trade) Dose Ordered Sig/Irena Route Start Time Stop Time Status Last Admin Pharmacy Profile Note 0 ml @ 0 mls/hr UNSCH OTHER 01/04/18 21:45 Sodium Chloride 1,000 ml @ 100 mls/hr Q10H IV 01/04/18 21:44 01/08/18 15:29 (NS Flush) 2 ml UNSCH PRN IV FLUSH 01/04/18 21:45 (NS Flush) 2 ml BID IV FLUSH 01/05/18 09:00 01/08/18 08:25 (Zofran Inj) 4 mg Q6H PRN IVP 01/04/18 21:45 (Tylenol) 650 mg Q6H PRN PO 01/04/18 21:45 (Patsy-Colace) 1 tab BID PO 01/05/18 09:00 01/08/18 08:23 (Milk Of Magnesia Liq) 30 ml Q12H PRN PO 01/04/18 21:45 01/07/18 18:29 (Senokot) 17.2 mg Q12H PRN PO 01/04/18 21:45 01/08/18 08:24 (Dulcolax Supp) 10 mg DAILY PRN RECTAL 01/04/18 21:45 01/07/18 20:49 (Lactulose Liq) 30 ml DAILY PRN PO 01/04/18 21:45 01/08/18 04:32 (Dilaudid Pf Inj) 1 mg Q4H PRN IV PUSH 01/04/18 23:15 01/08/18 04:19 (Percocet 5-325 Mg) 1 tab Q4H PRN PO 01/05/18 10:15 (Percocet 10-325 Mg) 1 tab Q4H PRN PO 01/05/18 10:15 01/08/18 13:01 (Morphine Inj) 2 mg Q4H PRN IV PUSH 01/05/18 10:15 Future Hold 01/06/18 10:46 Lactated Ringer's 1,000 ml @ 30 mls/hr Q24H PRN IV 01/06/18 04:45 01/09/18 04:44 (Betadine 5% Antisepsis Kit) [address] MAGISTRATE PRN EACH NARE 01/06/18 04:45 01/09/18 04:44 (Chlorhexidine 2% Cloth) [address] MAGISTRATE PRN TOPICAL 01/06/18 04:45 01/09/18 04:44 (Benadryl) 25 mg Q6H PRN PO 01/06/18 11:45 01/08/18 04:32 (Tessalon) 200 mg TID PRN PO 01/06/18 16:00 01/07/18 13:19 (Cepacol Extra Ha (Sugar Free)) 1 lozenge Q2HR PRN BUCCAL 01/06/18 16:00 Vancomycin HCl 2000 mg/Sodium Chloride 520 ml @ 250 mls/hr Q12H IV 01/07/18 04:00 01/08/18 15:29 Metronidazole 100 ml @ 100 mls/hr Q6H IV 01/07/18 12:00 01/08/18 13:01 Cefepime HCl 2000 mg/Sodium Chloride 100 ml @ 200 mls/hr Q12H IV 01/07/18 21:00 01/08/18 08:24 Miscellaneous Information SPECIFIC LAB TO BE ... ONCE ONCE .XX 01/09/18 03:45 01/09/18 03:46 Assessment and Plan Assessment and Plan POD #2 s/p I & D scrotal abscess -Check CT Pelvis w/o Contrast c/w possible inflammatory reaction from procedure -Follow ID recommendations re antbx treatment -Dressing changes daily -Sitz baths Urology cont to follow Brady Grubbs Jan 08, 2018 15:45
[2018-01-09] VITALS: BP 134/66; PULSE 92; RESP 20; TEMP 98.3; O2SAT 96
[2018-01-09] MEDS: metroNIDAZOLE 500 MG INJ 100 ML IV SCH ×5 (00:13→23:12)
[2018-01-09] MEDS: oxyCODONE/ACETAMINOPHEN 10 MG/325 MG TAB PO PRN ×5 (00:14→17:51)
[2018-01-09] MEDS: SODIUM CHLOR 0.9% 1000 ML INJ 1,000 ML IV SCH (01:44)
[2018-01-09] MEDS ORDERED: PHARMACY ORDERED LAB ONE (03:45)
[2018-01-09] MEDS: VANCOMYCIN INJ 2,000 MG in SODIUM CHLORID 0.9% 500 ML INJ 500 ML IV SCH (04:17)
[2018-01-09 05:12] LABS: CREATININE 1.01 MG/DL (0.60-1.30)
[2018-01-09 08:00] VITALS: BP 133/79; PULSE 77; RESP 19; TEMP 97.5; O2SAT 95
[2018-01-09] MEDS: DOCUSATE SODIUM 50 MG/SENNA 8.6 MG TAB PO SCH ×2 (08:58→20:28)
[2018-01-09] MEDS: CEFEPIME INJ 2,000 MG in SODIUM CHLORIDE 0.9% INJ 100 ML IV SCH ×2 (08:59→20:27)
[2018-01-09] MEDS: SODIUM CHLORIDE 0.9% FLUSH 10 ML FLUSH IV FLUSH SCH ×2 (08:59→20:28)
[2018-01-09 09:23] VITALS: O2SAT 97
--- NOTE | 2018-01-09 10:33 | HHI.PR ---
Subjective Remarks Follow-up scrotal abscess January 08, 2018-patient seen and examined, reports worsening scrotal swelling, pain and surrounding cellulitis. Had episode of hallucination however resolved. Currently afebrile January 09, 2018-patient seen and examined, reports significant improvement of scrotal swelling and surrounding cellulitis. States he might have caught a cold this AM Objective Vitals Vital Signs Date Time Temp Pulse Resp B/P (MAP) Pulse Ox O2 Delivery O2 Flow Rate FiO2 01/09/18 09:23 97 Nasal Cannula 3.00 01/09/18 08:00 97.5 77 19 133/79 (97) 95 01/09/18 00:00 98.3 92 20 134/66 (88) 96 01/08/18 20:00 98.4 89 20 159/83 (108) 97 01/08/18 18:03 95 Nasal Cannula 3.00 01/08/18 16:00 98.1 101 17 154/85 (108) 95 01/08/18 12:00 98.1 84 18 136/94 (108) 96 I/O 01/08/18 01/08/18 01/08/18 01/09/18 01/09/18 01/09/18 07:00 15:00 23:00 07:00 15:00 23:00 Intake Total 500 ml 100 ml 4040 ml Output Total 0 ml Balance 500 ml 100 ml 4040 ml 0 ml Intake Oral 2000 ml IV Total 500 ml 100 ml 2040 ml Stool Total 0 ml # Voids 8 6 # Bowel Movements 2 Result Diagram: 01/08/18 0650 01/09/18 0443 Imaging Last Impressions Pelvis CT 01/07/18 0000 Signed Impressions: Service Date/Time: Sunday, January 07, 2018 15:10 - CONCLUSION: 1. Air density in the left superior base and central dorsal base of the penis. Findings could be related to the recent surgical intervention although developing cellulitis cannot be excluded. 2. Similarly, increasing fluid and air in both sides of the hemiscrotum surrounding the testicles. Again, this could all be postsurgical but developing scrotal abscess cannot be excluded based on imaging alone. James York MD Abdomen/Pelvis CT 01/04/182010 Signed Impressions: Service Date/Time: December 20:34 - CONCLUSION: Edematous changes around the left inguinal canal Greg Bardales MD Scrotum Ultrasound 01/04/18 1809 Signed Impressions: Service Date/Time: December 19:12 - CONCLUSION: Testicles are nonacute in appearance. Microlithiasis noted. Edematous changes in the left inguinal canal. Greg Bardales MD Objective Remarks GENERAL: NAD SKIN: Warm and dry. improving erythema and cellulitis to pelvic area as well as thighs HEAD: Normocephalic. EYES: No scleral icterus. No injection or drainage. NECK: Supple, trachea midline. No JVD or lymphadenopathy. CARDIOVASCULAR: Regular rate and rhythm without murmurs, gallops, or rubs. RESPIRATORY: Breath sounds equal bilaterally. No accessory muscle use. GASTROINTESTINAL: Abdomen soft, non-tender, nondistended. MUSCULOSKELETAL: No cyanosis, or edema. : improving scrotal swelling BACK: Nontender without obvious deformity. No CVA tenderness. A/P Problem List: (1) Sepsis ICD Code: A41.9 - Sepsis, unspecified organism Status: Acute (2) Cellulitis of groin, left ICD Code: L03.314 - Cellulitis of groin Status: Acute (3) Tobacco abuse ICD Code: Z72.0 - Tobacco use (4) HTN (hypertension) ICD Code: I10 - Essential (primary) hypertension Assessment and Plan 37-year-old man with Sepsis Resolved Scrotal Cellulitis and abscess Improving scrotal cellulitis and swelling S/P I and D and management per urology Continue Vancomycin, Flagyl per ID CT abdomen and pelvis pending for further evaluation per urology Hypertension Continue baseline treatment Tobacco abuse NicoDerm DVT prophylaxis SCDs Problem Qualifiers (1) Sepsis: Qualified Codes: A41.9 - Sepsis, unspecified organism Bharathi Valles MD Jan 09, 2018 10:33
[2018-01-09] MEDS: diphenhydrAMINE HCL 25 MG CAP PO PRN ×2 (11:30→20:28)
[2018-01-09 12:00] VITALS: BP 127/61; PULSE 88; RESP 19; TEMP 97.8; O2SAT 95
--- NOTE | 2018-01-09 12:50 | HHI.IDPN ---
Subjective Subjective Remarks Patient is a 37-year-old male, presented to the hospital complaining of pain in his scrotum. He apparently felt like a cyst in his scrotum and it was therefore a while and had gotten bigger. He felt like it popped inside and soon after that he noted swelling and redness and pain in his scrotum. He denies any fever or chills. He has no trauma. He has not had any problem with urination. Denies any penile discharge, denies any problem with constipation. Imaging study revealed evidence of cellulitis. Urology saw the patient and he was taken to surgery and had I&D of the scrotal abscess. Today it was noted that he has had increasing scrotal swelling. White count went up to 16,000. He had some low-grade temps in the last 24 hours. He still complains of significant pain in his groin and in his scrotum. Infectious disease consultation has been requested to evaluate the patient. Patient had been on Vanco and Zosyn, and the Zosyn was stopped and he was started on Flagyl and gentamicin. Notes reviewed No fever Feels better WBC down to normal Culture with anaerobic gram-negative jamie Antibiotics Cefepime Flagyl Vancomycin Current Medications Medications (Trade) Dose Ordered Sig/Irena Route Start Time Stop Time Status Last Admin Pharmacy Profile Note 0 ml @ 0 mls/hr UNSCH OTHER 01/04/18 21:45 (NS Flush) 2 ml UNSCH PRN IV FLUSH 01/04/18 21:45 (NS Flush) 2 ml BID IV FLUSH 01/05/18 09:00 01/08/18 08:25 (Zofran Inj) 4 mg Q6H PRN IVP 01/04/18 21:45 (Tylenol) 650 mg Q6H PRN PO 01/04/18 21:45 (Patsy-Colace) 1 tab BID PO 01/05/18 09:00 01/09/18 08:58 (Milk Of Magnesia Liq) 30 ml Q12H PRN PO 01/04/18 21:45 01/07/18 18:29 (Senokot) 17.2 mg Q12H PRN PO 01/04/18 21:45 01/08/18 08:24 (Dulcolax Supp) 10 mg DAILY PRN RECTAL 01/04/18 21:45 01/07/18 20:49 (Lactulose Liq) 30 ml DAILY PRN PO 01/04/18 21:45 01/08/18 04:32 (Dilaudid Pf Inj) 1 mg Q4H PRN IV PUSH 01/04/18 23:15 01/08/18 04:19 (Percocet 5-325 Mg) 1 tab Q4H PRN PO 01/05/18 10:15 (Percocet 10-325 Mg) 1 tab Q4H PRN PO 01/05/18 10:15 01/09/18 09:10 (Morphine Inj) 2 mg Q4H PRN IV PUSH 01/05/18 10:15 Future Hold 01/06/18 10:46 (Benadryl) 25 mg Q6H PRN PO 01/06/18 11:45 01/09/18 11:30 (Tessalon) 200 mg TID PRN PO 01/06/18 16:00 01/07/18 13:19 (Cepacol Extra Ha (Sugar Free)) 1 lozenge Q2HR PRN BUCCAL 01/06/18 16:00 Vancomycin HCl 2000 mg/Sodium Chloride 520 ml @ 250 mls/hr Q12H IV 01/07/18 04:00 Future Hold 01/09/18 04:17 Metronidazole 100 ml @ 100 mls/hr Q6H IV 01/07/18 12:00 01/09/18 11:30 Cefepime HCl 2000 mg/Sodium Chloride 100 ml @ 200 mls/hr Q12H IV 01/07/18 21:00 01/09/18 08:59 Lines PIV with no evidence of infection Past Medical History HTN Migraine Renal Stones Past Surgical History Wrist surgery Allergies: Coded Allergies: No Known Allergies (Verified Allergy, Mild, 08/02/17) Objective . Vital Signs Date Time Temp Pulse Resp B/P (MAP) Pulse Ox O2 Delivery O2 Flow Rate FiO2 01/09/18 12:00 97.8 88 19 127/61 (83) 95 01/09/18 09:23 97 Nasal Cannula 3.00 01/09/18 08:00 97.5 77 19 133/79 (97) 95 01/09/18 00:00 98.3 92 20 134/66 (88) 96 01/08/18 20:00 98.4 89 20 159/83 (108) 97 4/23/18 18:03 95 Nasal Cannula 3.00 01/08/18 16:00 98.1 101 17 154/85 (108) 95 01/09/18 01/09/18 01/10/18 15:00 23:00 07:00 Intake Total 100 ml Balance 100 ml IV Total 100 ml . Laboratory Tests Test 01/08/18 06:50 White Blood Count 10.7 TH/MM3 Red Blood Count 4.06 MIL/MM3 Hemoglobin 12.8 GM/DL Hematocrit 36.9 % Mean Corpuscular Volume 90.8 FL Mean Corpuscular Hemoglobin 31.4 PG Mean Corpuscular Hemoglobin Concent 34.6 % Red Cell Distribution Width 13.2 % Platelet Count 355 TH/MM3 Mean Platelet Volume 6.8 FL Neutrophils (%) (Auto) 71.7 % Lymphocytes (%) (Auto) 14.9 % Monocytes (%) (Auto) 10.0 % Eosinophils (%) (Auto) 3.1 % Basophils (%) (Auto) 0.3 % Neutrophils # (Auto) 7.7 TH/MM3 Lymphocytes # (Auto) 1.6 TH/MM3 Monocytes # (Auto) 1.1 TH/MM3 Eosinophils # (Auto) 0.3 TH/MM3 Basophils # (Auto) 0.0 TH/MM3 CBC Comment DIFF FINAL Differential Comment Laboratory Tests Test 01/08/18 06:50 01/09/18 04:43 Blood Urea Nitrogen 11 MG/DL Creatinine 0.99 MG/DL 1.01 MG/DL Random Glucose 112 MG/DL Total Protein 7.1 GM/DL Albumin 3.1 GM/DL Calcium Level 8.5 MG/DL Alkaline Phosphatase 80 U/L Aspartate Amino Transf (AST/SGOT) 19 U/L Alanine Aminotransferase (ALT/SGPT) 31 U/L Total Bilirubin 0.5 MG/DL Sodium Level 136 MEQ/L Potassium Level 3.8 MEQ/L Chloride Level 102 MEQ/L Carbon Dioxide Level 24.6 MEQ/L Anion Gap 9 MEQ/L Estimat Glomerular Filtration Rate 86 ML/MIN 84 ML/MIN Imaging Last Impressions Pelvis CT 01/07/18 0000 Signed Impressions: Service Date/Time: Sunday, January 07, 2018 15:10 - CONCLUSION: 1. Air density in the left superior base and central dorsal base of the penis. Findings could be related to the recent surgical intervention although developing cellulitis cannot be excluded. 2. Similarly, increasing fluid and air in both sides of the hemiscrotum surrounding the testicles. Again, this could all be postsurgical but developing scrotal abscess cannot be excluded based on imaging alone. James York MD Abdomen/Pelvis CT 01/04/182010 Signed Impressions: Service Date/Time: December 20:34 - CONCLUSION: Edematous changes around the left inguinal canal Greg Bardales MD Scrotum Ultrasound 01/04/181808 Signed Impressions: Service Date/Time: December 19:12 - CONCLUSION: Testicles are nonacute in appearance. Microlithiasis noted. Edematous changes in the left inguinal canal. Greg Bardales MD Physical Exam GENERAL: awake and alert, not in respiratory distress. SKIN: Warm and dry. No generalized rash, no ecchymoses and no evidence of embolic lesions. HEAD: Atraumatic. Normocephalic. No temporal wasting, or tenderness. EYES: [place] conjunctiva. No petechia or hemorrhage. Pupils equal, round and reactive to light. Extraocular movements full and intact. No scleral icterus. No injection or drainage. EARS, NOSE AND THROAT: Nose without bleeding or purulent nasal discharge. No sinus tenderness. Mucous membranes pink and moist. No oral lesions noted. No exudate. No oral thrush. NECK: Trachea midline. Supple and not tender, no meningeal signs CARDIOVASCULAR: Regular rate and rhythm. No murmurs, rubs or gallops heard RESPIRATORY: Clear to auscultation. Breath sounds equal bilaterally. No rales , wheezing or rhonchi ABDOMEN: Soft, obese, non-tender, nondistended. Bowel sounds present and normoactive. No guarding. No rebound. No organomegaly. Induration in both groin is much improved. Area of redness in the thigh is resolved. : Swelling of the scrotum and redness is better. There is induration and redness in the perineum has improved. EXTREMITIES: No clubbing, cyanosis, or edema. No joint effusion, has good ROM. No calf tenderness. Well perfused and warm. NEUROLOGICAL: Grossly nonfocal PSYCHIATRIC: Normal affect, calm and cooperative. LINE: No evidence of infection Assessment & Plan Remarks IMPRESSION Scrotal cellulitis and abscess, extends to perineum and thigh - S/P I and D - scrotum more swollen - better RECOMMENDATION Stop vancomycin Continue Flagyl Continue cefepime Follow cultures Will be able to use oral antibiotic when he gets discharged from the hospital Explained plan to the patient Uyen Zamora MD Jan 09, 2018 12:50
[2018-01-09 16:00] VITALS: BP 141/69; PULSE 65; RESP 19; TEMP 97.5; O2SAT 95
[2018-01-09 20:00] VITALS: BP 147/79; PULSE 73; RESP 20; TEMP 98.2; O2SAT 96
[2018-01-10] VITALS: BP 151/82; PULSE 72; RESP 20; TEMP 97.9; O2SAT 97
[2018-01-10] MEDS: oxyCODONE/ACETAMINOPHEN 10 MG/325 MG TAB PO PRN ×4 (03:29→19:58)
[2018-01-10] MEDS: metroNIDAZOLE 500 MG INJ 100 ML IV SCH ×3 (05:33→18:11)
[2018-01-10 08:00] VITALS: BP 146/72; PULSE 88; RESP 20; TEMP 98.3; O2SAT 95
[2018-01-10] MEDS: CEFEPIME INJ 2,000 MG in SODIUM CHLORIDE 0.9% INJ 100 ML IV SCH ×2 (09:26→19:55)
[2018-01-10] MEDS: SODIUM CHLORIDE 0.9% FLUSH 10 ML FLUSH IV FLUSH SCH ×2 (09:27→20:27)
[2018-01-10] MEDS: DOCUSATE SODIUM 50 MG/SENNA 8.6 MG TAB PO SCH ×2 (09:27→19:54)
--- NOTE | 2018-01-10 11:01 | HHI.PR ---
Subjective Remarks Follow-up scrotal abscess January 08, 2018-patient seen and examined, reports worsening scrotal swelling, pain and surrounding cellulitis. Had episode of hallucination however resolved. Currently afebrile January 09, 2018-patient seen and examined, reports significant improvement of scrotal swelling and surrounding cellulitis. States he might have caught a cold this AM January 10, 2018-patient seen and examined, scrotal swelling down ,however patient still complained of left testicular pain. Afebrile Objective Vitals Vital Signs Date Time Temp Pulse Resp B/P (MAP) Pulse Ox O2 Delivery O2 Flow Rate FiO2 01/10/18 08:00 98.3 88 20 146/72 (96) 95 01/10/18 00:00 97.9 72 20 151/82 (105) 97 01/09/18 20:00 98.2 73 20 147/79 (101) 96 01/09/18 18:51 18 01/09/18 16:00 97.5 65 19 141/69 (93) 95 01/09/18 12:00 97.8 88 19 127/61 (83) 95 I/O 01/09/18 01/09/18 01/09/18 01/10/18 01/10/18 01/10/18 07:00 15:00 23:00 07:00 15:00 23:00 Intake Total 100 ml 1200 ml 680 ml 120 ml Output Total 0 ml Balance 0 ml 100 ml 1200 ml 680 ml 120 ml Intake Oral 1200 ml 480 ml 120 ml IV Total 100 ml 200 ml Stool Total 0 ml # Voids 6 5 2 # Bowel Movements 0 Result Diagram: 01/08/18 0650 01/09/18 0443 Imaging Last Impressions Pelvis CT 01/07/18 0000 Signed Impressions: Service Date/Time: Sunday, January 07, 2018 15:10 - CONCLUSION: 1. Air density in the left superior base and central dorsal base of the penis. Findings could be related to the recent surgical intervention although developing cellulitis cannot be excluded. 2. Similarly, increasing fluid and air in both sides of the hemiscrotum surrounding the testicles. Again, this could all be postsurgical but developing scrotal abscess cannot be excluded based on imaging alone. James York MD Abdomen/Pelvis CT 01/04/182010 Signed Impressions: Service Date/Time: December 20:34 - CONCLUSION: Edematous changes around the left inguinal canal Greg Bardales MD Scrotum Ultrasound 01/04/18 1809 Signed Impressions: Service Date/Time: December 19:12 - CONCLUSION: Testicles are nonacute in appearance. Microlithiasis noted. Edematous changes in the left inguinal canal. Greg Bardales MD Objective Remarks GENERAL: NAD SKIN: Warm and dry. improving erythema and cellulitis to pelvic area as well as thighs HEAD: Normocephalic. EYES: No scleral icterus. No injection or drainage. NECK: Supple, trachea midline. No JVD or lymphadenopathy. CARDIOVASCULAR: Regular rate and rhythm without murmurs, gallops, or rubs. RESPIRATORY: Breath sounds equal bilaterally. No accessory muscle use. GASTROINTESTINAL: Abdomen soft, non-tender, nondistended. MUSCULOSKELETAL: No cyanosis, or edema. : improving scrotal swelling BACK: Nontender without obvious deformity. No CVA tenderness. A/P Problem List: (1) Sepsis ICD Code: A41.9 - Sepsis, unspecified organism Status: Acute (2) Cellulitis of groin, left ICD Code: L03.314 - Cellulitis of groin Status: Acute (3) Tobacco abuse ICD Code: Z72.0 - Tobacco use (4) HTN (hypertension) ICD Code: I10 - Essential (primary) hypertension Assessment and Plan 37-year-old man with Sepsis Resolved Scrotal Cellulitis and abscess Improving scrotal cellulitis and swelling S/P I and D and management per urology Continue Vancomycin, Flagyl per ID Hypertension Continue baseline treatment Tobacco abuse NicoDerm DVT prophylaxis SCDs Problem Qualifiers (1) Sepsis: Qualified Codes: A41.9 - Sepsis, unspecified organism Bharathi Valles MD Jan 10, 2018 11:01
[2018-01-10 11:26] VITALS: O2SAT 97
[2018-01-10 12:00] VITALS: BP 141/89; PULSE 105; RESP 20; TEMP 98.2; O2SAT 95
--- NOTE | 2018-01-10 13:10 | HHI.PR ---
Subjective Patient symptoms today still c/o left sided groin pain. Denies fevers. Denies trouble voiding. Objective Vital Signs Vital Signs Date Time Temp Pulse Resp B/P (MAP) Pulse Ox O2 Delivery O2 Flow Rate FiO2 01/10/18 12:00 98.2 105 20 141/89 (106) 95 01/10/18 11:26 97 01/10/18 08:00 98.3 88 20 146/72 (96) 95 01/10/18 00:00 97.9 72 20 151/82 (105) 97 01/09/18 20:00 98.2 73 20 147/79 (101) 96 01/09/18 18:51 18 01/09/18 16:00 97.5 65 19 141/69 (93) 95 Intake & Output 01/10/18 01/10/18 07:00 19:00 Intake Total 680 ml 120 ml Balance 680 ml 120 ml Intake Oral 480 ml 120 ml IV Total 200 ml # Voids 2 # Bowel Movements 0 Result Diagram: 01/08/18 0650 01/09/18 0443 Objective Remarks NAD. abd soft left groin area hard, firm, tender, but minimal erythema. Scrotum soft Medications and IVs Current Medications Medications (Trade) Dose Ordered Sig/Irena Route Start Time Stop Time Status Last Admin (NS Flush) 2 ml UNSCH PRN IV FLUSH 01/04/18 21:45 (NS Flush) 2 ml BID IV FLUSH 01/05/18 09:00 01/10/18 09:27 (Zofran Inj) 4 mg Q6H PRN IVP 01/04/18 21:45 (Tylenol) 650 mg Q6H PRN PO 01/04/18 21:45 (Patsy-Colace) 1 tab BID PO 01/05/18 09:00 01/10/18 09:27 (Milk Of Magnesia Liq) 30 ml Q12H PRN PO 01/04/18 21:45 01/07/18 18:29 (Senokot) 17.2 mg Q12H PRN PO 01/04/18 21:45 01/08/18 08:24 (Dulcolax Supp) 10 mg DAILY PRN RECTAL 01/04/18 21:45 01/07/18 20:49 (Lactulose Liq) 30 ml DAILY PRN PO 01/04/18 21:45 01/08/18 04:32 (Dilaudid Pf Inj) 1 mg Q4H PRN IV PUSH 01/04/18 23:15 01/08/18 04:19 (Percocet 5-325 Mg) 1 tab Q4H PRN PO 01/05/18 10:15 (Percocet 10-325 Mg) 1 tab Q4H PRN PO 01/05/18 10:15 01/10/18 09:33 (Morphine Inj) 2 mg Q4H PRN IV PUSH 01/05/18 10:15 Future Hold 01/06/18 10:46 (Benadryl) 25 mg Q6H PRN PO 01/06/18 11:45 01/09/18 20:28 (Tessalon) 200 mg TID PRN PO 01/06/18 16:00 01/07/18 13:19 (Cepacol Extra Ha (Sugar Free)) 1 lozenge Q2HR PRN BUCCAL 01/06/18 16:00 Metronidazole 100 ml @ 100 mls/hr Q6H IV 01/07/18 12:00 01/10/18 11:15 Cefepime HCl 2000 mg/Sodium Chloride 100 ml @ 200 mls/hr Q12H IV 01/07/18 21:00 01/10/18 09:26 Assessment and Plan Assessment and Plan s/p I & D scrotal abscess -clinical picture has improved -WBC normal -Antibiotic per ID -Continue dressing changes as prescribed. Miller Rhodes MD Jan 10, 2018 13:10
[2018-01-10 16:00] VITALS: BP 143/72; PULSE 86; RESP 18; TEMP 97.9; O2SAT 95
[2018-01-10 20:14] VITALS: BP 151/84; PULSE 77; RESP 17; TEMP 98.6; O2SAT 94
[2018-01-11] MEDS: metroNIDAZOLE 500 MG INJ 100 ML IV SCH ×2 (00:11→05:48)
[2018-01-11] MEDS: oxyCODONE/ACETAMINOPHEN 10 MG/325 MG TAB PO PRN ×3 (00:22→20:24)
[2018-01-11 04:46] LABS: AUTOMATED NEUTROPHIL # 6.2 TH/MM3 (1.8-7.7); BASOPHIL # 0.1 TH/MM3 (0-0.2); BASOPHIL % 0.7 % (0.0-2.0); EOSINOPHIL # 0.4 TH/MM3 (0-0.4); EOSINOPHIL % 3.6 % (0.0-4.0); HEMATOCRIT 41.4 % (39.0-51.0); HEMOGLOBIN 14.7 GM/DL (13.0-17.0); LYMPH % 23.4 % (9.0-44.0); LYMPHOCYTE # 2.3 TH/MM3 (1.0-4.8); MEAN CELL VOLUME 90.7 FL (80.0-100.0); MEAN CORPUSCULAR HEMOGLOBIN 32.3 PG (27.0-34.0); MEAN CORPUSCULAR HGB CONC 35.6 % (32.0-36.0); MEAN PLATELET VOLUME 6.3 FL (7.0-11.0); MONO % 9.2 % (0.0-8.0); MONOCYTE # 0.9 TH/MM3 (0-0.9); NEUT % 63.1 % (16.0-70.0); PLATELET COUNT 446 TH/MM3 (150-450); RED BLOOD COUNT 4.57 MIL/MM3 (4.50-5.90); RED CELL DISTRIBUTION WIDTH 13.4 % (11.6-17.2); WHITE BLOOD COUNT 9.8 TH/MM3 (4.0-11.0)
[2018-01-11 05:06] LABS: BICARBONATE 26.8 MEQ/L (21.0-32.0); CALCIUM 8.8 MG/DL (8.5-10.1); CREATININE 1.09 MG/DL (0.60-1.30)
[2018-01-11 07:29] VITALS: BP 141/79; PULSE 77; RESP 18; TEMP 97.8; O2SAT 96
[2018-01-11] MEDS: MAGNESIUM HYDROXIDE SUSP 30 ML CUP PO PRN (08:52)
[2018-01-11] MEDS: DOCUSATE SODIUM 50 MG/SENNA 8.6 MG TAB PO SCH ×2 (08:52→20:21)
[2018-01-11] MEDS: CEFEPIME INJ 2,000 MG in SODIUM CHLORIDE 0.9% INJ 100 ML IV SCH (08:52)
[2018-01-11] MEDS: SODIUM CHLORIDE 0.9% FLUSH 10 ML FLUSH IV FLUSH SCH ×2 (08:53→20:21)
[2018-01-11 09:00] VITALS: O2SAT 95
--- NOTE | 2018-01-11 09:44 | HHI.PR ---
Subjective Remarks Follow-up scrotal abscess January 08, 2018-patient seen and examined, reports worsening scrotal swelling, pain and surrounding cellulitis. Had episode of hallucination however resolved. Currently afebrile January 09, 2018-patient seen and examined, reports significant improvement of scrotal swelling and surrounding cellulitis. States he might have caught a cold this AM January 10, 2018-patient seen and examined, scrotal swelling down ,however patient still complained of left testicular pain. Afebrile January 11, 2018-patient seen and examined, still complaining of left scrotal pain. Objective Vitals Vital Signs Date Time Temp Pulse Resp B/P (MAP) Pulse Ox O2 Delivery O2 Flow Rate FiO2 01/11/18 07:29 97.8 77 18 141/79 (99) 96 01/10/18 20:14 98.6 77 17 151/84 (106) 94 01/10/18 16:00 97.9 86 18 143/72 (95) 95 01/10/18 12:00 98.2 105 20 141/89 (106) 95 01/10/18 11:26 97 I/O 01/10/18 01/10/18 01/10/18 01/11/18 01/11/18 01/11/18 07:00 15:00 23:00 07:00 15:00 23:00 Intake Total 680 ml 120 ml 1180 ml 100 ml Output Total 800 ml Balance 680 ml 120 ml 380 ml 100 ml Intake Oral 480 ml 120 ml 1180 ml IV Total 200 ml 100 ml Output Urine Total 800 ml # Voids 2 # Bowel Movements 0 1 Result Diagram: 01/11/18 0410 01/11/18 0410 Imaging Last Impressions Pelvis CT 01/07/18 0000 Signed Impressions: Service Date/Time: Sunday, January 07, 2018 15:10 - CONCLUSION: 1. Air density in the left superior base and central dorsal base of the penis. Findings could be related to the recent surgical intervention although developing cellulitis cannot be excluded. 2. Similarly, increasing fluid and air in both sides of the hemiscrotum surrounding the testicles. Again, this could all be postsurgical but developing scrotal abscess cannot be excluded based on imaging alone. James York MD Abdomen/Pelvis CT 01/04/182010 Signed Impressions: Service Date/Time: December 20:34 - CONCLUSION: Edematous changes around the left inguinal canal Greg Bardales MD Scrotum Ultrasound 01/04/18 1808 Signed Impressions: Service Date/Time: December 19:12 - CONCLUSION: Testicles are nonacute in appearance. Microlithiasis noted. Edematous changes in the left inguinal canal. Greg Bardales MD Objective Remarks GENERAL: NAD SKIN: Warm and dry. improving erythema and cellulitis to pelvic area as well as thighs HEAD: Normocephalic. EYES: No scleral icterus. No injection or drainage. NECK: Supple, trachea midline. No JVD or lymphadenopathy. CARDIOVASCULAR: Regular rate and rhythm without murmurs, gallops, or rubs. RESPIRATORY: Breath sounds equal bilaterally. No accessory muscle use. GASTROINTESTINAL: Abdomen soft, non-tender, nondistended. MUSCULOSKELETAL: No cyanosis, or edema. : improving scrotal swelling BACK: Nontender without obvious deformity. No CVA tenderness. A/P Problem List: (1) Sepsis ICD Code: A41.9 - Sepsis, unspecified organism Status: Acute (2) Cellulitis of groin, left ICD Code: L03.314 - Cellulitis of groin Status: Acute (3) Tobacco abuse ICD Code: Z72.0 - Tobacco use (4) HTN (hypertension) ICD Code: I10 - Essential (primary) hypertension Assessment and Plan 37-year-old man with Sepsis Resolved Scrotal Cellulitis and abscess Improving scrotal cellulitis and swelling, despite patient complaining of left scrotal and groin pain S/P I and D and management per urology Continue Vancomycin, Flagyl per ID Hypertension Continue baseline treatment Tobacco abuse NicoDerm DVT prophylaxis SCDs Problem Qualifiers (1) Sepsis: Qualified Codes: A41.9 - Sepsis, unspecified organism Bharathi Valles MD Jan 11, 2018 09:44
--- NOTE | 2018-01-11 11:35 | HHI.IDPN ---
Subjective Subjective Remarks Patient is a 37-year-old male, presented to the hospital complaining of pain in his scrotum. He apparently felt like a cyst in his scrotum and it was therefore a while and had gotten bigger. He felt like it popped inside and soon after that he noted swelling and redness and pain in his scrotum. He denies any fever or chills. He has no trauma. He has not had any problem with urination. Denies any penile discharge, denies any problem with constipation. Imaging study revealed evidence of cellulitis. Urology saw the patient and he was taken to surgery and had I&D of the scrotal abscess. Today it was noted that he has had increasing scrotal swelling. White count went up to 16,000. He had some low-grade temps in the last 24 hours. He still complains of significant pain in his groin and in his scrotum. Infectious disease consultation has been requested to evaluate the patient. Patient had been on Vanco and Zosyn, and the Zosyn was stopped and he was started on Flagyl and gentamicin. Notes reviewed No fever Feels tired and with some nausea WBC down to normal Culture with anaerobic gram-negative jamie Still complaining of pain in the left groin Antibiotics Cefepime Flagyl Current Medications Medications (Trade) Dose Ordered Sig/Irena Route Start Time Stop Time Status Last Admin (NS Flush) 2 ml UNSCH PRN IV FLUSH 01/04/18 21:45 (NS Flush) 2 ml BID IV FLUSH 01/05/18 09:00 01/11/18 08:53 (Zofran Inj) 4 mg Q6H PRN IVP 01/04/18 21:45 01/11/18 09:01 (Tylenol) 650 mg Q6H PRN PO 01/04/18 21:45 (Patsy-Colace) 1 tab BID PO 01/05/18 09:00 01/11/18 08:52 (Milk Of Magnesia Liq) 30 ml Q12H PRN PO 01/04/18 21:45 01/11/18 08:52 (Senokot) 17.2 mg Q12H PRN PO 01/04/18 21:45 01/08/18 08:24 (Dulcolax Supp) 10 mg DAILY PRN RECTAL 01/04/18 21:45 01/07/18 20:49 (Lactulose Liq) 30 ml DAILY PRN PO 01/04/18 21:45 01/08/18 04:32 (Dilaudid Pf Inj) 1 mg Q4H PRN IV PUSH 01/04/18 23:15 01/08/18 04:19 (Percocet 5-325 Mg) 1 tab Q4H PRN PO 01/05/18 10:15 (Percocet 10-325 Mg) 1 tab Q4H PRN PO 01/05/18 10:15 01/11/18 09:00 (Morphine Inj) 2 mg Q4H PRN IV PUSH 01/05/18 10:15 Future Hold 01/06/18 10:46 (Benadryl) 25 mg Q6H PRN PO 01/06/18 11:45 01/09/18 20:28 (Tessalon) 200 mg TID PRN PO 01/06/18 16:00 01/07/18 13:19 (Cepacol Extra Ha (Sugar Free)) 1 lozenge Q2HR PRN BUCCAL 01/06/18 16:00 Metronidazole 100 ml @ 100 mls/hr Q6H IV 01/07/18 12:00 01/11/18 05:48 Cefepime HCl 2000 mg/Sodium Chloride 100 ml @ 200 mls/hr Q12H IV 01/07/18 21:00 01/11/18 08:52 Lines PIV with no evidence of infection Past Medical History HTN Migraine Renal Stones Past Surgical History Wrist surgery Allergies: Coded Allergies: No Known Allergies (Verified Allergy, Mild, 08/02/17) Objective . Vital Signs Date Time Temp Pulse Resp B/P (MAP) Pulse Ox O2 Delivery O2 Flow Rate FiO2 01/11/18 09:00 95 01/11/18 07:29 97.8 77 18 141/79 (99) 96 01/10/18 20:14 98.6 77 17 151/84 (106) 94 01/10/18 16:00 97.9 86 18 143/72 (95) 95 01/10/18 12:00 98.2 105 20 141/89 (106) 95 . Laboratory Tests Test 01/11/18 04:10 White Blood Count 9.8 TH/MM3 Red Blood Count 4.57 MIL/MM3 Hemoglobin 14.7 GM/DL Hematocrit 41.4 % Mean Corpuscular Volume 90.7 FL Mean Corpuscular Hemoglobin 32.3 PG Mean Corpuscular Hemoglobin Concent 35.6 % Red Cell Distribution Width 13.4 % Platelet Count 446 TH/MM3 Mean Platelet Volume 6.3 FL Neutrophils (%) (Auto) 63.1 % Lymphocytes (%) (Auto) 23.4 % Monocytes (%) (Auto) 9.2 % Eosinophils (%) (Auto) 3.6 % Basophils (%) (Auto) 0.7 % Neutrophils # (Auto) 6.2 TH/MM3 Lymphocytes # (Auto) 2.3 TH/MM3 Monocytes # (Auto) 0.9 TH/MM3 Eosinophils # (Auto) 0.4 TH/MM3 Basophils # (Auto) 0.1 TH/MM3 CBC Comment AUTO DIFF Differential Comment AUTO DIFF CONFIRMED Laboratory Tests Test 01/11/18 04:10 Blood Urea Nitrogen 15 MG/DL Creatinine 1.09 MG/DL Random Glucose 97 MG/DL Calcium Level 8.8 MG/DL Sodium Level 139 MEQ/L Potassium Level 4.2 MEQ/L Chloride Level 104 MEQ/L Carbon Dioxide Level 26.8 MEQ/L Anion Gap 8 MEQ/L Estimat Glomerular Filtration Rate 77 ML/MIN Imaging Last Impressions Pelvis CT 01/07/18 0000 Signed Impressions: Service Date/Time: Sunday, January 07, 2018 15:10 - CONCLUSION: 1. Air density in the left superior base and central dorsal base of the penis. Findings could be related to the recent surgical intervention although developing cellulitis cannot be excluded. 2. Similarly, increasing fluid and air in both sides of the hemiscrotum surrounding the testicles. Again, this could all be postsurgical but developing scrotal abscess cannot be excluded based on imaging alone. James York MD Abdomen/Pelvis CT 01/04/182010 Signed Impressions: Service Date/Time: December 20:34 - CONCLUSION: Edematous changes around the left inguinal canal Greg Bardales MD Scrotum Ultrasound 01/04/181808 Signed Impressions: Service Date/Time: December 19:12 - CONCLUSION: Testicles are nonacute in appearance. Microlithiasis noted. Edematous changes in the left inguinal canal. Greg Bardales MD Physical Exam GENERAL: awake and alert, not in respiratory distress. SKIN: Warm and dry. No generalized rash, no ecchymoses and no evidence of embolic lesions. HEAD: Atraumatic. Normocephalic. No temporal wasting, or tenderness. EYES: [place] conjunctiva. No petechia or hemorrhage. Pupils equal, round and reactive to light. Extraocular movements full and intact. No scleral icterus. No injection or drainage. EARS, NOSE AND THROAT: Nose without bleeding or purulent nasal discharge. No sinus tenderness. Mucous membranes pink and moist. No oral lesions noted. No exudate. No oral thrush. NECK: Trachea midline. Supple and not tender, no meningeal signs CARDIOVASCULAR: Regular rate and rhythm. No murmurs, rubs or gallops heard RESPIRATORY: Clear to auscultation. Breath sounds equal bilaterally. No rales , wheezing or rhonchi ABDOMEN: Soft, obese, non-tender, nondistended. Bowel sounds present and normoactive. No guarding. No rebound. No organomegaly. Induration in both groin is much improved. Area of redness in the thigh is resolved. : Swelling of the scrotum and redness is markedly improved. Induration and redness in the perineum has markedly improved as well. EXTREMITIES: No clubbing, cyanosis, or edema. No joint effusion, has good ROM. No calf tenderness. Well perfused and warm. NEUROLOGICAL: Grossly nonfocal PSYCHIATRIC: Normal affect, calm and cooperative. LINE: No evidence of infection Assessment & Plan Remarks IMPRESSION Scrotal cellulitis and abscess, extends to perineum and thigh - S/P I and D - scrotum more swollen - better RECOMMENDATION Change antibiotic to Cipro and Flagyl Will give 14 more days of oral antibiotic when he gets discharged Per patient urology is going to evaluate his left groin if any further intervention is done. Explained plan to the patient Patient is clinically doing well from ID standpoint I will be available as needed if with any no ID issues or question Uyen Zamora MD Jan 11, 2018 11:35
[2018-01-11 11:36] VITALS: BP 143/69; PULSE 78; RESP 18; TEMP 98.1; O2SAT 96
[2018-01-11] MEDS: LEVOFLOXACIN 750 MG TAB PO SCH (12:05)
[2018-01-11] MEDS: metroNIDAZOLE 500 MG TAB PO SCH ×2 (12:05→20:21)
--- NOTE | 2018-01-11 13:21 | HHI.PR ---
Subjective Patient symptoms today still c/o left groin,suprapubic pain. Denies fevers. Objective Vital Signs Vital Signs Date Time Temp Pulse Resp B/P (MAP) Pulse Ox O2 Delivery O2 Flow Rate FiO2 01/11/18 11:36 98.1 78 18 143/69 (93) 96 01/11/18 09:00 95 01/11/18 07:29 97.8 77 18 141/79 (99) 96 01/10/18 20:14 98.6 77 17 151/84 (106) 94 01/10/18 16:00 97.9 86 18 143/72 (95) 95 Intake & Output 01/11/18 01/11/18 07:00 19:00 Intake Total 100 ml Balance 100 ml IV Total 100 ml Result Diagram: 01/11/1840901/11/18409 Objective Remarks NAD. abd soft left groin area hard, firm, tender, but no redness. Scrotum soft Medications and IVs Current Medications Medications (Trade) Dose Ordered Sig/Irena Route Start Time Stop Time Status Last Admin (NS Flush) 2 ml UNSCH PRN IV FLUSH 01/04/18 21:45 (NS Flush) 2 ml BID IV FLUSH 01/05/18 09:00 01/11/18 08:53 (Zofran Inj) 4 mg Q6H PRN IVP 01/04/18 21:45 01/11/18 09:01 (Tylenol) 650 mg Q6H PRN PO 01/04/18 21:45 (Patsy-Colace) 1 tab BID PO 01/05/18 09:00 01/11/18 08:52 (Milk Of Magnesia Liq) 30 ml Q12H PRN PO 01/04/18 21:45 01/11/18 08:52 (Senokot) 17.2 mg Q12H PRN PO 01/04/18 21:45 01/08/18 08:24 (Dulcolax Supp) 10 mg DAILY PRN RECTAL 01/04/18 21:45 01/07/18 20:49 (Lactulose Liq) 30 ml DAILY PRN PO 01/04/18 21:45 01/08/18 04:32 (Dilaudid Pf Inj) 1 mg Q4H PRN IV PUSH 01/04/18 23:15 01/08/18 04:19 (Percocet 5-325 Mg) 1 tab Q4H PRN PO 01/05/18 10:15 (Percocet 10-325 Mg) 1 tab Q4H PRN PO 01/05/18 10:15 01/11/18 09:00 (Morphine Inj) 2 mg Q4H PRN IV PUSH 01/05/18 10:15 Future Hold 01/06/18 10:46 (Benadryl) 25 mg Q6H PRN PO 01/06/18 11:45 01/09/18 20:28 (Tessalon) 200 mg TID PRN PO 01/06/18 16:00 01/07/18 13:19 (Cepacol Extra Ha (Sugar Free)) 1 lozenge Q2HR PRN BUCCAL 01/06/18 16:00 (Levaquin) 750 mg Q24H PO 01/11/18 12:00 01/11/18 12:05 (Flagyl) 500 mg Q8H PO 01/11/18 12:00 01/11/18 12:05 Assessment and Plan Assessment and Plan s/p I & D scrotal abscess -clinical picture has improved -WBC normal -Antibiotic per ID -Continue dressing changes as prescribed. -CT Pelvis to r/o residual abscess. Suspect area is hematoma. Miller Rhodes MD Jan 11, 2018 13:20
[2018-01-11] MEDS ORDERED: IOHEXOL 350 MG/ML 10 ML VIAL (for RAD DIAG) IVCONTRAST ONE (15:23)
--- NOTE | 2018-01-11 15:36 | RADRPT ---
EXAM DATE/TIME: 01/11/2018 15:16 [place] COMPARISON: CT PELVIS W/O CONTRAST, January 07, 2018, 15:10. INDICATIONS : Left groin pain. IV CONTRAST: 95 cc Omnipaque 350 (iohexol) IV ORAL CONTRAST: Partial prescribed oral contrast ingested. RADIATION DOSE: 15.60 CTDIvol (mGy) MEDICAL HISTORY : Hypertension. Gastroesophageal reflux disease. Asthma. SURGICAL HISTORY : None. ENCOUNTER: Subsequent ACUITY: 4 - 6 days PAIN SCALE: 4/10 LOCATION: Left Groin TECHNIQUE: Volumetric scanning of the pelvis was performed. Using automated exposure control and adjustment of t he mA and/or kV according to patient size, radiation dose was kept as low as reasonably achievable to obtain optimal diagnostic quality images. DICOM format image data is available electronically for review and comparison. FINDINGS: BOWEL/MESENTERY: The visualized small and large bowel demonstrate no acute abnormality. There is no free fluid. BLADDER: There is no wall thickening or mass. RETROPERITONEUM: There is no aneurysm or lymphadenopathy. REPRODUCTIVE: Within normal limits. INGUINAL: There is significant induration and air in the left inguinal canal consistent with ongoing infection. No residual fluid collections are identified. Markedly improved since the . Bilateral obturator externus lymph nodes MUSCULOSKELETAL: Within normal limits for patient age. CONCLUSION: Compressive induration and edema in the left inguinal canal without drainable fluid collection or abs cess. Improved since 01/07/18. Alan Santos MD on January 11, 2018 at 15:32 Board Certified Radiologist. This report was verified electronically.
[2018-01-11 16:00] VITALS: BP 137/69; PULSE 66; RESP 16; TEMP 97.8; O2SAT 96
[2018-01-11 20:00] VITALS: BP 146/86; PULSE 86; RESP 18; TEMP 98.6; O2SAT 92
[2018-01-12] VITALS: BP 134/90; PULSE 76; RESP 18; TEMP 97.5; O2SAT 98
[2018-01-12] MEDS: oxyCODONE/ACETAMINOPHEN 10 MG/325 MG TAB PO PRN (04:53)
[2018-01-12] MEDS: metroNIDAZOLE 500 MG TAB PO SCH ×2 (04:53→11:45)
[2018-01-12 07:30] VITALS: BP 131/72; PULSE 71; RESP 17; TEMP 97.8; O2SAT 98
[2018-01-12] MEDS: DOCUSATE SODIUM 50 MG/SENNA 8.6 MG TAB PO SCH (09:00)
[2018-01-12] MEDS: SODIUM CHLORIDE 0.9% FLUSH 10 ML FLUSH IV FLUSH SCH (09:00)
[2018-01-12] MEDS ORDERED: CIPR-9 PO (11:11)
[2018-01-12] MEDS ORDERED: OXYC1TAB36 PO (11:11)
[2018-01-12] MEDS ORDERED: METR-1 PO (11:11)
[2018-01-12] MEDS: LEVOFLOXACIN 750 MG TAB PO SCH (11:45)
[2018-01-12 12:00] VITALS: BP 135/75; PULSE 84; RESP 18; TEMP 98; O2SAT 97
--- NOTE | 2018-01-12 12:30 | HHI.PR ---
Subjective Remarks Follow-up scrotal abscess January 08, 2018-patient seen and examined, reports worsening scrotal swelling, pain and surrounding cellulitis. Had episode of hallucination however resolved. Currently afebrile January 09, 2018-patient seen and examined, reports significant improvement of scrotal swelling and surrounding cellulitis. States he might have caught a cold this AM January 10, 2018-patient seen and examined, scrotal swelling down ,however patient still complained of left testicular pain. Afebrile January 11, 2018-patient seen and examined, still complaining of left scrotal pain. January 12, 2018-patient seen and examined, some improvement of left scrotal pain and swelling. Afebrile. Objective Vitals Vital Signs Date Time Temp Pulse Resp B/P (MAP) Pulse Ox O2 Delivery O2 Flow Rate FiO2 01/12/18 07:30 97.8 71 17 131/72 (91) 98 01/12/18 00:00 97.5 76 18 134/90 (105) 98 01/11/18 20:00 98.6 86 18 146/86 (106) 92 01/11/18 16:00 97.8 66 16 137/69 (91) 96 I/O 01/11/18 01/11/18 01/11/18 01/12/18 01/12/18 01/12/18 07:00 15:00 23:00 07:00 15:00 23:00 Intake Total 100 ml 200 ml 840 ml Balance 100 ml 200 ml 840 ml Intake Oral 840 ml IV Total 100 ml 200 ml # Voids 5 # Bowel Movements 2 Result Diagram: 01/11/18 0410 01/11/18 0410 Imaging Last Impressions Pelvis CT 01/11/18 0000 Signed Impressions: Service Date/Time: December 15:16 - CONCLUSION: Compressive induration and edema in the left inguinal canal without drainable fluid collection or abscess. Improved since 01/07/18. Alan Santos MD Abdomen/Pelvis CT 01/04/182010 Signed Impressions: Service Date/Time: December 20:34 - CONCLUSION: Edematous changes around the left inguinal canal Greg Bardales MD Scrotum Ultrasound 01/04/18 1809 Signed Impressions: Service Date/Time: December 19:12 - CONCLUSION: Testicles are nonacute in appearance. Microlithiasis noted. Edematous changes in the left inguinal canal. Greg Bardales MD Objective Remarks GENERAL: NAD SKIN: Warm and dry. improving erythema and cellulitis to pelvic area as well as thighs HEAD: Normocephalic. EYES: No scleral icterus. No injection or drainage. NECK: Supple, trachea midline. No JVD or lymphadenopathy. CARDIOVASCULAR: Regular rate and rhythm without murmurs, gallops, or rubs. RESPIRATORY: Breath sounds equal bilaterally. No accessory muscle use. GASTROINTESTINAL: Abdomen soft, non-tender, nondistended. MUSCULOSKELETAL: No cyanosis, or edema. : improving scrotal swelling BACK: Nontender without obvious deformity. No CVA tenderness. Procedures Incision and drainage of scrotal abscess. A/P Problem List: (1) Sepsis ICD Code: A41.9 - Sepsis, unspecified organism Status: Acute (2) Cellulitis of groin, left ICD Code: L03.314 - Cellulitis of groin Status: Acute (3) Tobacco abuse ICD Code: Z72.0 - Tobacco use (4) HTN (hypertension) ICD Code: I10 - Essential (primary) hypertension Assessment and Plan 37-year-old man with Sepsis Resolved Scrotal Cellulitis and abscess Improving scrotal cellulitis and swelling, despite patient complaining of left scrotal and groin pain S/P I and D and management per urology Repeat CT abdomen January 11, 2018 revealed improvement of scrotal abscess s/p Vancomycin, currently on p.o. Levaquin and Flagyl per ID. Will discharge patient home on Cipro and Flagyl 10 days Hypertension Continue baseline treatment Tobacco abuse NicoDerm DVT prophylaxis SCDs Problem Qualifiers (1) Sepsis: Qualified Codes: A41.9 - Sepsis, unspecified organism Bharathi Valles MD Jan 12, 2018 12:30
--- NOTE | 2018-01-12 13:10 | HHI.DS ---
Discharge Summary Admission Date Jan 04, 2018 at 21:45 Discharge Date: Jan 12, 2018 Admitting Diagnosis Sepsis; Scrotal Cellulitis (1) Sepsis ICD Code: A41.9 - Sepsis, unspecified organism Status: Acute (2) Cellulitis of groin, left ICD Code: L03.314 - Cellulitis of groin Status: Acute (3) Tobacco abuse ICD Code: Z72.0 - Tobacco use (4) HTN (hypertension) ICD Code: I10 - Essential (primary) hypertension Procedures Incision and drainage of scrotal abscess. Brief History - From Admission This is a 37-year-old male with a PMH of HTN, Migraine and Renal Stones who presented to the ER with complaints of testicular pain x1 day. Denies recent trauma or injury. No penile discharge, no dysuria. No h/o similar symptoms in the past. Pain is constant, severe, 10/10, radiates to left groin, worse w/ movement. On arrival, BP 164/69, HR 115, O2 sat 96% on RA, Temp 99.1. WBC 21.4. Chemistry unremarkable. Scrotum US testicles nonacute in appearance, microlithiasis noted, edematous changes left inguinal canal. CT Abdomen/Pelvis edematous changes around left inguinal canal. S/p Zosyn in ER. CBC/BMP: 01/11/18 0410 01/11/18 0410 Significant Findings Laboratory Tests Test 01/11/18 04:10 Mean Platelet Volume 6.3 FL (7.0-11.0) Monocytes (%) (Auto) 9.2 % (0.0-8.0) Estimat Glomerular Filtration Rate 77 ML/MIN (>89) Imaging Last Impressions Pelvis CT 01/11/18 0000 Signed Impressions: Service Date/Time: December 15:16 - CONCLUSION: Compressive induration and edema in the left inguinal canal without drainable fluid collection or abscess. Improved since 01/07/18. Alan Santos MD Abdomen/Pelvis CT 01/04/182010 Signed Impressions: Service Date/Time: December 20:34 - CONCLUSION: Edematous changes around the left inguinal canal Greg Bardales MD Scrotum Ultrasound 01/04/18 1809 Signed Impressions: Service Date/Time: December 19:12 - CONCLUSION: Testicles are nonacute in appearance. Microlithiasis noted. Edematous changes in the left inguinal canal. Greg Bardales MD PE at Discharge GENERAL: NAD SKIN: Warm and dry. improving erythema and cellulitis to pelvic area as well as thighs HEAD: Normocephalic. EYES: No scleral icterus. No injection or drainage. NECK: Supple, trachea midline. No JVD or lymphadenopathy. CARDIOVASCULAR: Regular rate and rhythm without murmurs, gallops, or rubs. RESPIRATORY: Breath sounds equal bilaterally. No accessory muscle use. GASTROINTESTINAL: Abdomen soft, non-tender, nondistended. MUSCULOSKELETAL: No cyanosis, or edema. : improving scrotal swelling BACK: Nontender without obvious deformity. No CVA tenderness. Hospital Course While in hospital, patient was treated for Sepsis Resolved Scrotal Cellulitis and abscess Improving scrotal cellulitis and swelling S/P I and D and management per urology A repeat CT abdomen/pelvis prior to discharge revealed improvement of scrotal abscess s/p Vancomycin, currently on p.o. Levaquin and Flagyl per ID. Will discharge patient home on Cipro and Flagyl 10 days Hypertension Continue baseline treatment Tobacco abuse NicoDerm Pt Condition on Discharge: Good Discharge Disposition: Discharge Home Discharge Time: <= 30 minutes Discharge Instructions DIET: Follow Instructions for: As Tolerated, No Restrictions New Medications: Ciprofloxacin (Cipro) 500 Mg Tab 500 MG PO BID for Infection, #20 TAB 0 Refills Metronidazole (Flagyl) 500 Mg Tab 500 MG PO Q8H for Infection, #30 TAB Oxycodone HCl/Acetaminophen (Oxycodone-Acetaminophen 10-325) 10 Mg-325 Mg Tablet 1 TAB PO Q4H PRN for Pain 7 to 10, #15 TAB Continued Medications: Cyclobenzaprine (Flexeril) 10 Mg Tab 10 MG PO TID for Muscle Spasm, #30 TAB 0 Refills Naproxen (Naproxen) 500 Mg Tab 500 MG PO BID for 10 Days, #20 TAB 0 Refills Bharathi Valles MD Jan 12, 2018 13:10
--- NOTE | 2018-01-12 14:50 | HHI.PR ---
Subjective Patient symptoms today s/p left scrotal abscess I&D. Still has induration at left groin area and pain due to still inflammation and poss hematoma. CT scan is negative for new forming abscess. VS and LABS are stable Objective Vital Signs Vital Signs Date Time Temp Pulse Resp B/P (MAP) Pulse Ox O2 Delivery O2 Flow Rate FiO2 01/12/18 12:00 98.0 84 18 135/75 (95) 97 01/12/18 07:30 97.8 71 17 131/72 (91) 98 01/12/18 00:00 97.5 76 18 134/90 (105) 98 01/11/18 20:00 98.6 86 18 146/86 (106) 92 01/11/18 16:00 97.8 66 16 137/69 (91) 96 Result Diagram: 01/11/1840901/11/18409 Objective Remarks NAD. abd soft left groin area hard, firm, tender, but no redness. Scrotum soft Medications and IVs Current Medications Medications (Trade) Dose Ordered Sig/Irena Route Start Time Stop Time Status Last Admin (NS Flush) 2 ml UNSCH PRN IV FLUSH 01/04/18 21:45 (NS Flush) 2 ml BID IV FLUSH 01/05/18 09:00 01/12/18 09:00 (Zofran Inj) 4 mg Q6H PRN IVP 01/04/18 21:45 01/11/18 09:01 (Tylenol) 650 mg Q6H PRN PO 01/04/18 21:45 (Patsy-Colace) 1 tab BID PO 01/05/18 09:00 01/11/18 20:21 (Milk Of Magnesia Liq) 30 ml Q12H PRN PO 01/04/18 21:45 01/11/18 08:52 (Senokot) 17.2 mg Q12H PRN PO 01/04/18 21:45 01/08/18 08:24 (Dulcolax Supp) 10 mg DAILY PRN RECTAL 01/04/18 21:45 01/07/18 20:49 (Lactulose Liq) 30 ml DAILY PRN PO 01/04/18 21:45 01/08/18 04:32 (Dilaudid Pf Inj) 1 mg Q4H PRN IV PUSH 01/04/18 23:15 4/23/18 04:19 (Percocet 5-325 Mg) 1 tab Q4H PRN PO 01/05/18 10:15 (Percocet 10-325 Mg) 1 tab Q4H PRN PO 01/05/18 10:15 01/12/18 04:53 (Morphine Inj) 2 mg Q4H PRN IV PUSH 01/05/18 10:15 Future Hold 01/06/18 10:46 (Benadryl) 25 mg Q6H PRN PO 01/06/18 11:45 01/09/18 20:28 (Tessalon) 200 mg TID PRN PO 01/06/18 16:00 01/07/18 13:19 (Cepacol Extra Ha (Sugar Free)) 1 lozenge Q2HR PRN BUCCAL 01/06/18 16:00 (Levaquin) 750 mg Q24H PO 01/11/18 12:00 01/12/18 11:45 (Flagyl) 500 mg Q8H PO 01/11/18 12:00 01/12/18 11:45 Assessment and Plan Assessment and Plan s/p I & D scrotal abscess -clinical picture has improved -WBC normal. VS are ok -Antibiotic per ID -Continue dressing changes as prescribed. -CT Pelvis to r/o residual abscess is normal. - D/c planning as per primary team - No additional intervention, urology is signing off. Pt to f/u as an outpt with Dr Rhodes in 2weeks Brady Grubbs Jan 12, 2018 14:50
== END 2018-01-12 16:55 | disposition home or self-care (01) | DRG 872 ==
LOC: NEPD 17:15 → NEDA 21:45 → NEDH 01-05 03:19 → N07B 01-05 14:45
PROVIDERS: ADMIT Hospitalist; ATTEND Hospitalist
PROC: 0V950ZZ Drainage of Scrotum, Open Approach (ICD-10-PCS; principal; 2018-01-06 08:06)
DX: A41.9 Sepsis, unspecified organism (principal); I10 Essential (primary) hypertension; N49.2 Inflammatory disorders of scrotum; Z72.0 Tobacco use
CPT/HCPCS: 72192; 72193; 74177; 76870; 80048; 80053; 80202; 81001; 82565; 85025; 87015; 87070; 87102; 87116; 87185; 87205; 87206; 93975; 96365; 96375; 96376; J0131; J0330; J0692; J1170; J1200; J1580; J1885; J2250; J2270; J2405; J2543; J3010; J3370; J7030; J7040; Q9967